=== PATIENT | male | born 1935 | race Caucasian/White ===

== ENCOUNTER 2017-06-29 16:02 | Observation (INO) ==
[2017-06-29] MEDS ORDERED: Nitroglycerin 0.4 MG TAB.SUBL SL PRN (16:24)
[2017-06-29] MEDS ORDERED: Nitroglycerin 1,000 MCG/10 ML VIAL IV STA (16:27)
[2017-06-29] MEDS ORDERED: Nitroglycerin 25 MG/250 ML INFUS..BTL IVC SCH (16:30)
--- NOTE | 2017-06-29 16:38 | Emergency Department Note ---
Disposition Clinical Impression: PRES (posterior reversible encephalopathy syndrome), Hypertensive emergency, Blurred vision, bilateral Disposition: Admitted As Inpatient Condition: Undetermined Referrals: Willard Elam MD [Primary Care Provider] - Forms: ED Satisfaction Letter Time of Disposition: 18:19 General Adult HPI - General Chief complaint: ED Eye Problems Stated complaint: Blurred Vision/LOPEZ Time Seen by Provider: 06/29/17 16:14 Source: patient Mode of arrival: ambulatory Limitations: no limitations Nursing Notes Reviewed: Yes Vital Signs Reviewed: Yes - History of Present Illness HPI Narrative: 81-year-old male with history of hypertension, hyperlipidemia arrives to the emergency department complaining of blurred vision and headache on the right side. The patient states this started roughly 24 hours ago. The patient states it is continued. The patient denies any numbness, tingling, chest pain, difficulty breathing. The patient describes lateral blurred vision. The patient states that is continued to get worse. He went to urgent care today for evaluation. They instructed him to come to the emergency department. The patient denies any black vision or decreased vision in one eye and states that his blurred vision bilaterally. The patient denies any other complaints at this time and denies any previous history of CVA. The patient does have history of hypertension is poorly controlled on multiple medications. His blood pressures currently 200 systolic. Heart rate is currently 57. The patient has been taking his medication as he is supposed to. He denies any other complaints at this time. Pain Scale: 3 - Related Data Home Medications Medication Instructions Recorded Confirmed Amlodipine Besylate/Benazepril 0.5 tab PO DAILY 12/13/14 04/29/17 [Lotrel 10-20 mg Capsule] Finasteride [Proscar] 5 mg PO DAILY 12/13/14 04/29/17 Metoprolol [Lopressor] 25 mg PO DAILY 12/13/14 04/29/17 Omeprazole [PriLOSEC] 20 mg PO DAILY 12/13/14 04/29/17 Sertraline [Zoloft] 100 mg PO DAILY 12/13/14 04/29/17 Allergies Allergy/AdvReac Type Severity Reaction Status Date / Time No Known Allergies Allergy Verified 06/29/17 15:21 All systems ED: reviewed and negative except as stated. Constitutional: Denies: fever, chills Eyes: Reports: eye pain, vision change ENT ED: Denies: ear pain, throat pain, dental pain Cardiovascular: Denies: chest pain Respiratory: Denies: dyspnea Gastrointestinal: Denies: abdominal pain Genitourinary: Denies: dysuria Musculoskeletal: Denies: back pain, neck pain Integumentary: Denies: rash Neurological: Reports: headache. Denies: weakness, numbness, paresthesias, confusion, abnormal gait, vertigo Past Medical History - Past Medical History Attestation: Yes The following information was validated with the patient. Source: patient, old records reviewed Medical history: Reports: cancer (Prostate), hyperlipidemia, hypertension, other Surgical history: Reports: non-contributory Psychiatric history: Reports: anxiety, depression - Social History Smoking Status: Never smoker Smokeless Tobacco Status: No Alcohol use: Reports: occasionally Drug use: Reports: none Physical Exam - General Limitations: no limitations General appearance: alert, in no apparent distress - Head Head exam: atraumatic, normocephalic, normal inspection - Eye Eye exam: Present: normal appearance, PERRL, EOMI. Absent: conjunctival injection, nystagmus, miosis, mydriasis, periorbital swelling, periorbital tenderness - ENT ENT exam: normal exam, normal oropharynx, mucous membranes moist - Neck Neck exam: Present: normal inspection, full ROM, trachea midline - Chest Chest inspection: Present: normal inspection, symmetric chest wall rise - Respiratory Respiratory exam: Present: normal lung sounds bilaterally - Cardiovascular Cardiovascular exam: Present: normal rhythm, bradycardia, normal heart sounds - Abdominal Exam Abdominal exam: Present: soft, Non-Tender. Absent: tenderness, distention, guarding, rebound, rigidity - Extremities Exam Extremities exam: Present: normal inspection, full ROM. 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 Choi in neurology who recommended we administer aspirin. He said otherwise at the patient will be seen by neurology. No further recommendations at this time. Time: 18:01 Vital Signs Temperature 97.9 F 06/29/17 16:06 Pulse Rate 57 06/29/17 16:06 Respiratory Rate 18 06/29/17 16:06 Blood Pressure 200/91 06/29/17 16:06 O2 Sat by Pulse Oximetry 97 06/29/17 16:06 Temperature 97.9 F 06/29/17 16:06 Pulse Rate 65 06/29/17 17:53 Respiratory Rate 18 06/29/17 17:53 Blood Pressure 147/70 06/29/17 17:53 O2 Sat by Pulse Oximetry 97 06/29/17 17:53 Oxygen Delivery Oxygen Delivery Room Air Medical Decision Making - MDM Narrative Medical decision making narrative: Workup in the emergency department demonstrates no acute process to labs and imaging. The patient's blood pressure was initially 200 systolic. The patient was placed in her carnitine drip and his blood pressure quickly responded. The patient states that his blurred vision is quickly improved. He has no further complaints at this time. He is resting comfortably in the room. The patient's last pressure was [address] Zhao. - Lab Data Lab results reviewed: Yes I reviewed the patient's lab results. Result diagrams: 06/29/17 16:21 06/29/17 16:21 Lab Results 06/29/17 06/29/17 06/29/17 Range/Units 16:21 16:21 16:21 WBC 8.3 (4.3-11.1) K/mcL RBC 4.72 (4.19-5.50) M/mcL Hgb 15.0 (12.9-16.9) g/dL Hct 43.6 (37.5-50.1) % MCV 92.4 (83.0-100.0) fL MCH 31.8 (28.0-33.3) pg MCHC 34.4 (31.6-35.5) g/dL RDW 12.8 (11.5-14.5) % Plt Count 154 (140-400) K/mcL MPV 10.2 (9.4-12.4) fL Immature Gran % 0.4 (0-4) % Seg Neutrophils % 68.0 % Lymphocytes % 22.7 % Monocytes % 6.8 % Eosinophils % 1.7 % Basophils % 0.4 % Neutrophils # 5.6 (1.6-8.9) K/mcL Lymphocytes # 1.9 (0.6-4.6) K/mcL Monocytes # 0.6 (0.0-1.3) K/mcL Eosinophils # 0.1 (0.0-0.6) K/mcL Basophils # 0.0 (0.0-0.2) K/mcL ESR (0-10) mm/hr PT 11.8 (9.4-12.1) Seconds INR 1.1 APTT 28.3 (26.0-36.0) Seconds Sodium 139 (136-145) mEq/L Potassium 4.3 (3.5-5.1) mEq/L Chloride 107 (98-107) mEq/L Carbon Dioxide 26 (23-29) mEq/L BUN 14 (8-23) mg/dL Creatinine 0.93 (0.70-1.30) mg/dL Est GFR ( Amer) > 60 (> 60) Est GFR (Non-Af Amer) > 60 (> 60) BUN/Creatinine Ratio 15 (6-26) Glucose 107 H (70-105) mg/dL Calculated Osmolality 289 (280-300) Calcium 9.2 (8.6-10.3) mg/dL Troponin I < 0.03 (< 0.04) ng/mL 06/29/17 Range/Units 16:21 WBC (4.3-11.1) K/mcL RBC (4.19-5.50) M/mcL Hgb (12.9-16.9) g/dL Hct (37.5-50.1) % MCV (83.0-100.0) fL MCH (28.0-33.3) pg MCHC (31.6-35.5) g/dL RDW (11.5-14.5) % Plt Count (140-400) K/mcL MPV (9.4-12.4) fL Immature Gran % (0-4) % Seg Neutrophils % % Lymphocytes % % Monocytes % % Eosinophils % % Basophils % % Neutrophils # (1.6-8.9) K/mcL Lymphocytes # (0.6-4.6) K/mcL Monocytes # (0.0-1.3) K/mcL Eosinophils # (0.0-0.6) K/mcL Basophils # (0.0-0.2) K/mcL ESR 15 H (0-10) mm/hr PT (9.4-12.1) Seconds INR APTT (26.0-36.0) Seconds Sodium (136-145) mEq/L Potassium (3.5-5.1) mEq/L Chloride (98-107) mEq/L Carbon Dioxide (23-29) mEq/L BUN (8-23) mg/dL Creatinine (0.70-1.30) mg/dL Est GFR ( Amer) (> 60) Est GFR (Non-Af Amer) (> 60) BUN/Creatinine Ratio (6-26) Glucose (70-105) mg/dL Calculated Osmolality (280-300) Calcium (8.6-10.3) mg/dL Troponin I (< 0.04) ng/mL - Radiology Data Radiology results reviewed: Yes I reviewed the patient's radiology results.
[2017-06-29] MEDS ORDERED: niCARdipine 40 MG/200 ML MLS IVC SCH (16:45)
--- NOTE | 2017-06-29 16:58 | Emergency Department Note ---
Disposition Clinical Impression: PRES (posterior reversible encephalopathy syndrome), Hypertensive emergency, Blurred vision, bilateral Disposition: Admitted As Inpatient Condition: Undetermined General Adult HPI - General Chief complaint: ED Eye Problems Stated complaint: Blurred Vision/LOPEZ Time Seen by Provider: 06/29/17 16:14 Source: patient Mode of arrival: ambulatory Limitations: no limitations Nursing Notes Reviewed: Yes Vital Signs Reviewed: Yes - History of Present Illness HPI Narrative: I, Tay Martinez, examined this patient and my medical decision-making was reviewed with the BRIDGE RIGGER/PA/Advanced Practice Nurse/Resident Physician. I agree with the documented findings, disposition and treatment plan as described except to the extent set forth below. 81-year-old male presents emergency Department with concerns of headache, blurred vision and elevated blood pressure. Patient states symptoms have been present over the past 24 hours. Patient states symptoms did not improve throughout the day and presented to the emergency department for further evaluation. Patient denies recent trauma or changes in medications. His initial evaluation had a blood pressure greater than 200 systolic, he is treated for hypertension however he did not miss any of his daily medications. No other changes in medications. Patient describes having a horizontal binocular diplopia. He does have a history of ataxia and feels like it may be worse than his baseline although he has not fallen is still able to ambulate. On physical examination the patient has tenderness to palpation of the right protestant. Extraocular range of motion is intact to examination. Peripheral vision is intact to examination bilaterally. Patient has mild ataxia with finger to nose testing however he states that that is his baseline. No other focal neurologic deficits noted on exam. We will administer nicardipine for possible hypertensive emergency to drop his blood pressure by a goal of 20%. Laboratory testing and imaging is pending at this time however patient will likely be admitted to the hospital for further care and evaluation. Pain Scale: 3 - Related Data Home Medications Medication Instructions Recorded Confirmed Amlodipine Besylate/Benazepril 0.5 tab PO DAILY 12/13/14 06/29/17 [Lotrel 10-20 mg Capsule] Finasteride [Proscar] 5 mg PO DAILY 12/13/14 06/29/17 Metoprolol [Lopressor] 25 mg PO DAILY 12/13/14 06/29/17 Omeprazole [PriLOSEC] 20 mg PO DAILY 12/13/14 06/29/17 Sertraline [Zoloft] 100 mg PO DAILY 12/13/14 06/29/17 Allergies Allergy/AdvReac Type Severity Reaction Status Date / Time No Known Allergies Allergy Verified 06/29/17 15:21 Constitutional: Denies: fever, chills Eyes: Reports: eye pain, vision change ENT ED: Denies: ear pain, throat pain, dental pain Cardiovascular: Denies: chest pain Respiratory: Denies: dyspnea Gastrointestinal: Denies: abdominal pain Genitourinary: Denies: dysuria Musculoskeletal: Denies: back pain, neck pain Integumentary: Denies: rash Neurological: Reports: headache. Denies: weakness, numbness, paresthesias, confusion, abnormal gait, vertigo Past Medical History - Past Medical History Medical history: Reports: cancer (Prostate), hyperlipidemia, hypertension, other Surgical history: Reports: non-contributory Psychiatric history: Reports: anxiety, depression - Social History Smoking Status: Never smoker Smokeless Tobacco Status: No Alcohol use: Reports: occasionally Drug use: Reports: none Physical Exam - General Limitations: no limitations General appearance: alert, in no apparent distress Course Vital Signs Temperature 97.9 F 06/29/17 16:06 Pulse Rate 57 06/29/17 16:06 Respiratory Rate 18 06/29/17 16:06 Blood Pressure 200/91 06/29/17 16:06 O2 Sat by Pulse Oximetry 97 06/29/17 16:06 Temperature 98.2 F 06/29/17 21:51 Pulse Rate 78 06/29/17 21:51 Respiratory Rate 20 06/29/17 21:51 Blood Pressure 179/79 06/29/17 21:51 O2 Sat by Pulse Oximetry 96 06/29/17 21:51 Oxygen Delivery Oxygen Delivery Room Air Medical Decision Making - Lab Data Result diagrams: 06/29/17 16:21 06/29/17 16:21 Lab Results 06/29/17 06/29/17 06/29/17 Range/Units 16:21 16:21 16:21 WBC 8.3 (4.3-11.1) K/mcL RBC 4.72 (4.19-5.50) M/mcL Hgb 15.0 (12.9-16.9) g/dL Hct 43.6 (37.5-50.1) % MCV 92.4 (83.0-100.0) fL MCH 31.8 (28.0-33.3) pg MCHC 34.4 (31.6-35.5) g/dL RDW 12.8 (11.5-14.5) % Plt Count 154 (140-400) K/mcL MPV 10.2 (9.4-12.4) fL Immature Gran % 0.4 (0-4) % Seg Neutrophils % 68.0 % Lymphocytes % 22.7 % Monocytes % 6.8 % Eosinophils % 1.7 % Basophils % 0.4 % Neutrophils # 5.6 (1.6-8.9) K/mcL Lymphocytes # 1.9 (0.6-4.6) K/mcL Monocytes # 0.6 (0.0-1.3) K/mcL Eosinophils # 0.1 (0.0-0.6) K/mcL Basophils # 0.0 (0.0-0.2) K/mcL ESR (0-10) mm/hr PT 11.8 (9.4-12.1) Seconds INR 1.1 APTT 28.3 (26.0-36.0) Seconds Sodium 139 (136-145) mEq/L Potassium 4.3 (3.5-5.1) mEq/L Chloride 107 (98-107) mEq/L Carbon Dioxide 26 (23-29) mEq/L BUN 14 (8-23) mg/dL Creatinine 0.93 (0.70-1.30) mg/dL Est GFR ( Amer) > 60 (> 60) Est GFR (Non-Af Amer) > 60 (> 60) BUN/Creatinine Ratio 15 (6-26) Glucose 107 H (70-105) mg/dL Calculated Osmolality 289 (280-300) Calcium 9.2 (8.6-10.3) mg/dL Troponin I < 0.03 (< 0.04) ng/mL 06/29/17 Range/Units 16:21 WBC (4.3-11.1) K/mcL RBC (4.19-5.50) M/mcL Hgb (12.9-16.9) g/dL Hct (37.5-50.1) % MCV (83.0-100.0) fL MCH (28.0-33.3) pg MCHC (31.6-35.5) g/dL RDW (11.5-14.5) % Plt Count (140-400) K/mcL MPV (9.4-12.4) fL Immature Gran % (0-4) % Seg Neutrophils % % Lymphocytes % % Monocytes % % Eosinophils % % Basophils % % Neutrophils # (1.6-8.9) K/mcL Lymphocytes # (0.6-4.6) K/mcL Monocytes # (0.0-1.3) K/mcL Eosinophils # (0.0-0.6) K/mcL Basophils # (0.0-0.2) K/mcL ESR 15 H (0-10) mm/hr PT (9.4-12.1) Seconds INR APTT (26.0-36.0) Seconds Sodium (136-145) mEq/L Potassium (3.5-5.1) mEq/L Chloride (98-107) mEq/L Carbon Dioxide (23-29) mEq/L BUN (8-23) mg/dL Creatinine (0.70-1.30) mg/dL Est GFR ( Amer) (> 60) Est GFR (Non-Af Amer) (> 60) BUN/Creatinine Ratio (6-26) Glucose (70-105) mg/dL Calculated Osmolality (280-300) Calcium (8.6-10.3) mg/dL Troponin I (< 0.04) ng/mL
[2017-06-29 17:12] LABS: Basophils % 0.4 %; Eosinophils # 0.1 K/mcL (0.0-0.6); Eosinophils % 1.7 %; Hematocrit 43.6 % (37.5-50.1); Immature Granulocytes % 0.4 % (0-4); Lymphocytes # 1.9 K/mcL (0.6-4.6); Lymphocytes % 22.7 %; Mean Corpuscular HGB Conc 34.4 g/dL (31.6-35.5); Mean Corpuscular Hemoglobin 31.8 pg (28.0-33.3); Mean Corpuscular Volume 92.4 fL (83.0-100.0); Mean Platelet Volume 10.2 fL (9.4-12.4); Monocytes # 0.6 K/mcL (0.0-1.3); Monocytes % 6.8 %; Neutrophils # 5.6 K/mcL (1.6-8.9); Platelet Count 154 K/mcL (140-400); Red Blood Count 4.72 M/mcL (4.19-5.50); Red Cell Distribution Width 12.8 % (11.5-14.5)
[2017-06-29 17:17] LABS: INR 1.1; Prothrombin Time 11.8 Seconds (9.4-12.1)
[2017-06-29 17:20] LABS: Activated Partial Thrombo Time 28.3 Seconds (26.0-36.0)
[2017-06-29 17:36] LABS: BUN/Creatinine Ratio 15 (6-26); Blood Urea Nitrogen 14 mg/dL (8-23); Calcium 9.2 mg/dL (8.6-10.3); Carbon Dioxide 26 mEq/L (23-29); Chloride 107 mEq/L (98-107); Glucose 107 mg/dL (70-105); Osmolality,Calculated 289 (280-300); Potassium 4.3 mEq/L (3.5-5.1); Sodium 139 mEq/L (136-145); eGFR For African Americans > 60 (> 60); eGFR For Non-African Americans > 60 (> 60)
[2017-06-29 17:37] LABS: Troponin I < 0.03 ng/mL (< 0.04)
[2017-06-29] MEDS ORDERED: Aspirin 325 MG TABLET PO ONE (17:59)
--- NOTE | 2017-06-29 20:19 | Internal Med History&Physical ---
<Marielos Moulton H - Last Filed: 06/29/17 22:23> Date of Encounter: 06/29/17 Time of Encounter: 20:18 Internal Medicine - H&P: HPI Chief complaint: weakness, diplopia Admitted From: Emergency Dept Plans for Post Hospital Care: Home History of present illness: Mr. Ragland is a 81 year old male with past medical history of HTN, BPH, HLD, and anxiety who presented to [facility] 06/29/2017 with chief complaint of diplopia, weakness, and blurry vision. Per patient, he described his symptoms as starting early Friday afternoon. He initially presented to the urgent care with a BP reading greater than 200 systolic. He was subsequently transferred to the ED for hypertensive emergency. In the ED, his blood pressure was found to be 200/91. Patient states he has been taking his medications compliantly. He denies any recent diplopia. He denies any recent life stressors or situations causing extra anxiety. He states his PCP is Dr. Willard Elam. Patient denies any history of coronary artery disease or cardiac interventions. He denies history of CVA. When describing his visual disturbances, he reports seeing double, as well as seeing blurry in both lateral ott. Upon examination, patient is resting comfortably. He does report a chronic tremor and some difficulties with ambulation from suspected Parkinson's. He denies any chest pain, shortness of breath, diaphoresis, nausea, or vomiting. He denies any diarrhea, constipation, melena, hematochezia, or hematemesis. He denies any fevers, chills, or night sweats. He states his headache has improved , however, he states his blurred vision has barely improved. Past Med Surg Social Fam HX - Past Medical History Attestation: Yes The following information was validated with the patient. Source: patient, old records reviewed Medical history: cancer (Prostate), hyperlipidemia, hypertension, other Psychiatric history: anxiety, depression - Past Surgical History Surgical History: non-contributory - Social History Smoking Status: Former smoker Smokeless Tobacco Status: No Alcohol use: occasionally Drug use: none - Family History Father Living Status: Hx Family Cardiac Disorders: No Hx Family Respiratory Disorders: No Hx Family Cancer: No Hx Family GI Disorders: No Hx Family Endocrine Disorder: No Hx Family Neuromuscular Disorders: No Hx Family Neurologic Disorders: No Hx Family HEENT Disorders: No Hx Family Autoimmune Disorders: No Internal Medicine - H&P: Meds Amlodipine Besylate/Benazepril [Lotrel 10-20 mg Capsule] 0.5 tab PO DAILY [History] Finasteride [Proscar] 5 mg PO DAILY 12/13/14 [History] Metoprolol [Lopressor] 25 mg PO DAILY 12/13/14 [History] Omeprazole [PriLOSEC] 20 mg PO DAILY 12/13/14 [History] Sertraline [Zoloft] 100 mg PO DAILY 12/13/14 [History] 3 Allergy/AdvReac Type Severity Reaction Status Date / Time No Known Allergies Allergy Verified 06/29/17 15:21 All Systems PM: A 10-system review of systems was performed and is negative for pertinent findings except as documented above in the HPI. - Constitutional Constitutional: no chills, no falls, no lethargy, no night sweats, no weight gain, no weight loss - EENT Eyes: blurry vision, diplopia, no loss of peripheral vision, no photophobia, no spots in vision Nose, mouth and throat: no facial pain - Cardiovascular Cardiovascular ROS IM: no chest pain, no claudication, no diaphoresis, no dyspnea, no dyspnea on exertion, no edema, no irregular heart rhythm, no lightheadedness, no orthopnea, no palpitations, no paroxysmal nocturnal dyspnea - Respiratory Respiratory: no cough, no dyspnea, no hemoptysis, no chest congestion - Gastrointestinal Gastrointestinal: no abdominal pain, no coffee ground emesis, no constipation, no cramping, no diarrhea, no hematemesis, no hematochezia, no melena, no nausea , no vomiting - Genitourinary Genitourinary ROS male: urinary frequency, no dysuria, no hematuria - Integumentary Integumentary IM: no erythema, no rash, no jaundice - Neurological Neurological ROS: abnormal gait, headache(s), weakness, other visual disturbances (diplopia), no abnormal hearing, no abnormal speech, no behavioral changes, no burning sensations, no confusion, no convulsions, no disequilibrium , no dizziness, no focal weakness, no frequent falls, no numbness - Psychiatric Psychiatric: anhedonia, no abnormal sleep pattern, no confusion - Endocrine Endocrine IM: no cold intolerance, no heat intolerance - Allergic/Immunologic Allergic/Immunologic: no tongue swelling, no throat swelling - Constitutional Vitals: Temp Pulse Resp BP Pulse Ox 97.9 F 72 16 174/81 96 06/29/17 16:06 06/29/17 20:16 06/29/17 20:16 06/29/17 20:16 06/29/17 20:16 General appearance: Present: A&O X 3, pleasant, no acute distress, answers questions appropriately - Head Head exam: Present: atraumatic, normocephalic - Eye Eye exam: Present: EOMI, PERRL, conjuntiva pink, sclera anicteric. Absent: nystagmus, periorbital swelling, periorbital tenderness, scleral icterus Pupils: Present: normal accommodation, PERRL - ENT ENT exam: Present: mucous membranes moist, normal oropharynx - Neck Neck exam general surgery: Present: supple, trachea midline. Absent: lymphadenopathy - Respiratory Respiratory exam: Present: CTAB. Absent: accessory muscle use, rales, rhonchi, wheezes - Cardiovascular Cardiovascular exam: Present: RRR, +S1, +S2. Absent: diastolic murmur, gallop, rubs, systolic murmur - GI/Abdominal GI/Abdominal exam: Present: normal bowel sounds, soft, no peritoneal signs. Absent: distended, firm, guarding, tenderness - Extremities Exam Extremities exam: Present: normal capillary refill, warm, radial pulses palpable and symmetrical. Absent: calf tenderness, cyanotic, pedal edema - Neurological Exam Neurological exam: Present: alert, CN II-XII intact, oriented X3, no focal deficits, strengths equal and symetr throughout. Absent: pronater drift, facial droop, speech deficit - Expanded Neurological Exam Neurological exam expanded: Present: ataxia, protecting the airway, tremor. Absent: expressive aphasia, receptive aphasia Cranial Nerves: EOM's intact PM: Normal, gag reflex PM: Normal, nystagmus PM: Normal, tongue deviation PM: Normal Cerebellar function: finger to nose: Normal Upper motor neuron: Babinski sign: Normal Sensory exam: LE 2 point discrimination: Normal, lower extremity light touch: Normal, lower extremity pin prick: Normal, UE 2 point discrimination: Normal, upper extremity light touch: Normal, upper extremity pin prick: Normal Neuro motor strength exam: LUE: 5, RUE: 5, LLE: 5, RLE: 5 DTR: bicep (L): 2+, bicep (R): 2+, patellar (L): 2+, patellar (R): 2+ - Psychiatric Psychiatric exam: Present: normal affect, normal mood - Skin Skin exam: Present: dry, intact, warm Internal Med - H&P Results - Labs CBC & Chem 7: 06/29/17 16:21 06/29/17 16:21 Labs: Short CBC 06/29/17 Range/Units 16:21 WBC 8.3 (4.3-11.1) K/mcL Hgb 15.0 (12.9-16.9) g/dL Hct 43.6 (37.5-50.1) % Plt Count 154 (140-400) K/mcL Neutrophils # 5.6 (1.6-8.9) K/mcL BMP 06/29/17 16:21 Sodium 139 Potassium 4.3 Chloride 107 Carbon Dioxide 26 BUN 14 Creatinine 0.93 Glucose 107 H Calcium 9.2 Cardiac Enzymes 06/29/17 Range/Units 16:21 Troponin I < 0.03 (< 0.04) ng/mL - Impressions ITS Impressions Head CT 06/29/17 16:25 IMPRESSION: No acute intracranial abnormality. D/ / Maxime Pena / Maxime Pena Interpreting Provider: Maxime Pena - Assessment and plan (1) Hypertensive emergency Current Visit: Yes Status: Acute Assessment and plan: 81-year-old male with past medical history HTN presents with hypertensive emergency with generalized neurological symptoms. -Continue cardizem drip with titration parameters to keep blood pressure below 170/80. -Resume home metoprolol at home dose tonight- to be started tonight. -Resume home amlodipine at twice the home dose and Benzapril at the same dose- to be given in the AM. -CT scan the head shows no acute abnormality. Will proceed with an MRI of the head. (2) Double vision Current Visit: No Status: Acute Assessment and plan: Patient with double vision that he denies prior to onset of his symptoms 24 hours ago. -Neurology consulted from the ED. They will see him in the morning. -Unclear etiology. Symptoms started greater than 24 hours previous so patient would be outside of the window for tPA regardless. -MRI head. (3) Headache Current Visit: No Status: Acute Assessment and plan: Patient states his right-sided headache is improving with control of his blood pressure. -Continue to monitor. -Appreciate neurology recommendations. Qualifiers: Headache type: unspecified Headache chronicity pattern: acute headache Intractability: not intractable Qualified Code(s): R51 - Headache (4) DVT prophylaxis Current Visit: Yes Status: Acute Assessment and plan: Heparin 5000 units subcutaneous twice a day. - Time Spent With Patient Total time spent is greater than 50% in coordination of care (as documented) at patient's floor/unit and/or counseling patient: <Mele Hong - Last Filed: 06/30/17 06:22> Date of Encounter: 06/30/17 Internal Medicine - H&P: HPI History of present illness: Mr. Ragland is a 81 year old male All Systems PM: A 10-system review of systems was performed and is negative for pertinent findings except as documented above in the HPI. - Constitutional Vitals: Temp Pulse Resp BP Pulse Ox 97.7 F 60 18 153/84 94 06/30/17 04:00 06/30/17 04:00 06/30/17 04:00 06/30/17 04:00 06/30/17 04:00 Internal Med - H&P Results - Labs CBC & Chem 7: 06/30/17 05:19 06/29/17 16:21 Labs: Short CBC 06/30/17 Range/Units 05:19 WBC 9.1 (4.3-11.1) K/mcL Hgb 14.6 (12.9-16.9) g/dL Hct 43.1 (37.5-50.1) % Plt Count 147 (140-400) K/mcL Neutrophils # 6.0 (1.6-8.9) K/mcL - Attending Attestation I have seen and examined this patient independently. I have discussed with resident physician Dr Walters regarding the management plan. Agree with the documentation. - Assessment and plan (1) Headache Current Visit: No Status: Inactive Qualifiers: Headache type: unspecified Headache chronicity pattern: acute headache Intractability: not intractable Qualified Code(s): R51 - Headache (2) Double vision Current Visit: No Status: Inactive (3) Hypertensive emergency Current Visit: Yes Status: Acute (4) DVT prophylaxis Current Visit: Yes Status: Acute - Time Spent With Patient Total time spent is greater than 50% in coordination of care (as documented) at patient's floor/unit and/or counseling patient:
[2017-06-29] MEDS ORDERED: Acetaminophen 325 MG TABLET PO PRN (22:14)
[2017-06-29] MEDS ORDERED: Naloxone 0.4 MG/ML INJ IVP PRN (22:14)
[2017-06-29] MEDS: Metoprolol XL (24 HR) Succ 25 MG TAB.ER.24H PO SCH (23:57)
[2017-06-30] MEDS: niCARdipine 40 MG/200 ML MLS IVC SCH ×3 (00:54→15:08)
[2017-06-30 06:09] LABS: Basophils % 0.4 %; Eosinophils # 0.2 K/mcL (0.0-0.6); Eosinophils % 1.7 %; Hematocrit 43.1 % (37.5-50.1); Hemoglobin 14.6 g/dL (12.9-16.9); Immature Granulocytes % 0.3 % (0-4); Lymphocytes # 2.2 K/mcL (0.6-4.6); Lymphocytes % 24.1 %; Mean Corpuscular HGB Conc 33.9 g/dL (31.6-35.5); Mean Corpuscular Hemoglobin 31.1 pg (28.0-33.3); Mean Corpuscular Volume 91.9 fL (83.0-100.0); Monocytes # 0.6 K/mcL (0.0-1.3); Platelet Count 147 K/mcL (140-400); Red Blood Count 4.69 M/mcL (4.19-5.50); Red Cell Distribution Width 12.8 % (11.5-14.5); Segmented Neutrophils % 66.5 %
[2017-06-30 06:35] LABS: Alanine Aminotransferase 16 Units/L (7-52); Albumin 4.2 g/dL (3.5-5.7); Albumin/Globulin Ratio 1.7 (1.1-2.2); Alkaline Phosphatase 65 Units/L (34-104); Aspartate Amino Transferase 15 Units/L (13-39); BUN/Creatinine Ratio 15 (6-26); Bilirubin,Total 0.9 mg/dL (0.3-1.0); Blood Urea Nitrogen 13 mg/dL (8-23); Calcium 9.5 mg/dL (8.6-10.3); Carbon Dioxide 27 mEq/L (23-29); Chloride 106 mEq/L (98-107); Chol/HDL Ratio 3.9 (0-4.9); Cholesterol 171 mg/dL (< 200); Globulin 2.5 g/dL (2.4-3.5); Glucose 113 mg/dL (70-105); HDL Cholesterol 44 mg/dL (40-59); LDL Cholesterol,Calculated 100 mg/dL (0-99); Magnesium 1.7 mg/dL (1.6-2.6); Osmolality,Calculated 289 (280-300); Phosphorous 3.1 mg/dL (2.7-4.5); Potassium 4.2 mEq/L (3.5-5.1); Sodium 139 mEq/L (136-145); Total Protein 6.7 g/dL (6.4-8.9); Triglycerides 136 mg/dL (< 150); eGFR For African Americans > 60 (> 60); eGFR For Non-African Americans > 60 (> 60)
[2017-06-30] MEDS: *HR* Heparin 5,000 UNIT/ML VIAL SQ SCH ×2 (06:54→16:44)
[2017-06-30] MEDS: Finasteride 5 MG TABLET PO SCH (07:52)
[2017-06-30] MEDS: Metoprolol XL (24 HR) Succ 25 MG TAB.ER.24H PO SCH (07:52)
[2017-06-30] MEDS: amLODIPine 5 MG TABLET PO SCH (07:52)
--- NOTE | 2017-06-30 08:24 | Internal Med Progress Note ---
<Mikey Morales - Last Filed: 06/30/17 13:20> Date of Encounter: 06/30/17 Time of Encounter: 08:23 - Assessment and plan (1) Hypertensive emergency Current Visit: Yes Status: Acute Assessment and plan: Associated with blurred vision, diplopia, and right-sided headache and frontotemporal region. Blood pressure elevations show suboptimal control. Has oculomotor nerve deficits on exam. Head CT was negative for any signs of ischemic stroke or intracranial hemorrhage. Neurology has been consulted on case and recommendations appreciated. No other acute neurologic deficits elucidated on exam. Nicardipine drip is currently off. -- Possible CVA -- will defer more vigilant blood pressure control for time being due to concern of acute cerebral ischemia; may consider upward titration of lisinopril if needed. -- reinstate nicardipine drip for any systolic blood pressures over 195 -- continue metoprolol at 25 mg XL daily, amlodipine 10 mg daily; will opt not to increase metoprolol this patient is borderline bradycardic -- awaiting MRI of head (2) Headache Current Visit: No Status: Inactive Assessment and plan: Overall pain is more well-controlled, however headache does persist. Patient has had tenuous control of his elevated blood pressures. All plans as above. Qualifiers: Headache type: unspecified Headache chronicity pattern: acute headache Intractability: not intractable Qualified Code(s): R51 - Headache (3) Double vision Current Visit: No Status: Inactive Assessment and plan: Continues to have oculomotor nerve palsy evident on upward gaze and medial gaze. Neurology onboard and head MRI is pending. All plans as above (4) DVT prophylaxis Current Visit: Yes Status: Acute Assessment and plan: Heparin 5000 units subcutaneous twice a day. - Time Spent With Patient Total time spent is greater than 50% in coordination of care (as documented) at patient's floor/unit and/or counseling patient: - Subjective Interval history: Patient continues to have loose control his blood pressure with a peak systolic 180 this morning. Patient has received his metoprolol XL 25 mg and amlodipine 10 mg at 0800. Last measure BP at that time had been just prior. Patient has been weaned off as nicardipine drip. Lisinopril due at 0900. Patient continues to have mild headache that localizes to the right side as well as continued "double vision"; double vision is worse when rapidly looking straight ahead or when looking up. No other newer acute complaints. Recent history -- denies any lateralizing weakness, numbness, tingling, blackened visual ott, difficulty speaking/swallowing, chest pain, palpitations, shortness of air, nausea, vomiting, abdominal pain, pedal edema, or any recent fever/chills/sweats. Neurology onboard and awaiting MRI. - Constitutional Vitals: Temp Pulse Resp BP Pulse Ox 97.7 F 68 18 180/86 95 06/30/17 07:46 06/30/17 07:59 06/30/17 07:46 06/30/17 07:46 06/30/17 07:46 General appearance: Present: A&O X 3, pleasant, no acute distress, answers questions appropriately Exam: CONSTITUTIONAL: Alert and oriented X3, well-nourished, well appearing, in no apparent distress HEAD: Normocephalic; atraumatic. EYES: PERRL (2-3mm), no scleral icterus, no drainage, no conjunctival injection. Corneal reflex normal and lateral penlight test normal. Oropharynx: pink/moist, no tonsillar edema/erythema/exudates RESP: NRD without use of accessory musculature, CTA b/l with no wheezes/rales/ rhonchi CARD: Regular rhythm, without murmurs, rubs, or gallop ABD: grossly normal, soft, non-tender, no guarding/distention/rigidity SKIN: normal appearance, no pallor/diaphoresis,mottling,jaundice,cyanosis EXT: Rad pulses 2+ and symmetrical; no lateralizing edema; no other lesions seen NEUR: right extraocular motion hindered in the superior and medial planes; other cranial nerve exam within normal limits. No lateralizing motor deficits. Does have baseline intention tremor in b/l hands. No resting tremor. No ataxia in UE/LE. Reflexes 2+ to bilateral brachial and bilateral patellar tendons. Negative Babinski. PSYCH: appropriate mood/affect Internal Medicine: Result - Labs CBC & Chem 7: 06/30/17 05:19 06/30/17 05:19 - ABG Interpretation ABG results: PT/INR, D-dimer PT 11.8 Seconds (9.4-12.1) 06/29/17 16:21 Consult Discharge Plan - Plan Referrals: Willard Elam MD [Primary Care Provider] - (OFFICE WILL NOT MAKE A FOLLOW UP APPOINTMENT THEY WANT THE PATIENT TO CALL AND MAKE THEIR OWN) <Dereje Weldon - Last Filed: 06/30/17 17:58> Date of Encounter: 06/30/17 - Assessment and plan (1) Hypertensive emergency Current Visit: Yes Status: Acute (2) Cranial nerve III palsy Current Visit: Yes Status: Acute Qualifiers: Laterality: right Qualified Code(s): 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, right eye (3) Double vision Current Visit: No Status: Inactive (4) Headache Current Visit: No Status: Inactive Qualifiers: Headache type: unspecified Headache chronicity pattern: acute headache Intractability: not intractable Qualified Code(s): R51 - Headache (5) DVT prophylaxis Current Visit: Yes Status: Acute - Time Spent With Patient Total time spent is greater than 50% in coordination of care (as documented) at patient's floor/unit and/or counseling patient: - Constitutional Vitals: Temp Pulse Resp BP Pulse Ox 98.2 F 65 16 158/90 96 06/30/17 16:20 06/30/17 16:20 06/30/17 16:20 06/30/17 16:20 06/30/17 16:20 Internal Medicine: Result - Labs CBC & Chem 7: 06/30/17 05:19 06/30/17 05:19 - ABG Interpretation ABG results: PT/INR, D-dimer PT 11.8 Seconds (9.4-12.1) 06/29/17 16:21 - Impressions Impressions Echocardiogram 06/30/17 11:53 Impressions: LVEF 60-65%. Normal LV chamber size and function. Mild concentric left ventricular hypertrophy. Mild left ventricular diastolic dysfunction. Normal right ventricular structure and function. No evidence of PFO with agitated saline contrast. Mild aortic regurgitation. Mild tricuspid regurgitation. Mild pulmonary hypertension. Estimated RVSP is 41 mmHg. Left Ventricular Wall Motion: Rest Echo Findings All wall segments showed normal motion. Findings: Study Quality * Technically adequate exam. ECG Findings * Normal sinus rhythm. Left Ventricle * LVEF 60-65%. * Normal LV chamber size and function. * Mild concentric left ventricular hypertrophy. * Mild left ventricular diastolic dysfunction. Right Ventricle * Normal right ventricular structure and function. Left Atrium * Mildly dilated left atrium. Right Atrium * Mildly dilated right atrium. Interatrial Septum * No evidence of PFO with agitated saline contrast. Aortic Valve * Trileaflet aortic valve. * Mildly sclerotic aortic valve leaflets. * Mild aortic regurgitation. * No aortic stenosis. Mitral Valve * Normal mitral valve structure and function. * No mitral stenosis. * Trace mitral regurgitation. Tricuspid Valve * Normal tricuspid valve structure. * Mild tricuspid regurgitation. * Mild pulmonary hypertension. * Estimated RVSP is 41 mmHg. * Estimated RA pressure is 5 mmHg. Pulmonic Valve * Normal pulmonic valve structure and function. * No pulmonic regurgitation. Aorta * Normally sized aortic root. Pericardium * The pericardium appears normal. IVC * The IVC is not well evaluated. Pulmonary Artery * Normal visualized portions of the main pulmonary artery. - Attending Attestation I examined this patient and my medical decision-making was reviewed with the Resident Physician on 06/30/17. I agree with the documented findings, disposition and treatment plan as described except to the extent set forth below. Mr Ragland has been admitted for acute hypertensive emergency and visual changes. He remains moderate to high risk due to potential for worsening neuro and clinical status. Mr Ragland is resting comfortably. Still has some headache. Visual changes still present. No fever or chills. Appreciate neuro input. Exam alert Comfortable Mucus membranes dry Heart distant and regular No wheeze Abd soft I/P 1. HTN emergency 2. Gaze palsy Further diagnoses and plan as above.
--- NOTE | 2017-06-30 09:54 | Neurology - Consult Note ---
<Shahid Garcia - Last Filed: 06/30/17 11:34> Date of Encounter: 06/30/17 Time of Encounter: 11:34 Assessment and Plan (1) CVA (cerebral vascular accident) Current Visit: Yes Status: Suspected Patient presented with acute onset of blurry vision which then progresses to double vision Neuro exam non-focal and non-lateralizing except for right cranial nerve three palsy: absent adduction of right eye, right eyelid drooping. Ct scan negative, Plan: awaiting MRI, Aspirin, statin. Order carotid doppler, echocardiogram. Qualifiers: CVA mechanism: unspecified Qualified Code(s): I63.9 - Cerebral infarction, unspecified (2) Cranial nerve III palsy Current Visit: Yes Status: Acute plan as above. Qualifiers: Laterality: right Qualified Code(s): 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, right eye (3) Diplopia Current Visit: Yes Status: Acute 2nd to cranial nerve three palsy (4) Hypertensive emergency Current Visit: Yes Status: Acute presented with BP 200/91 hx of htn on amlodipine, metoprolol, at home was started on nicardipine gtt in ER which improved his BP to systolic 150s with reoported improvement in blurry vision recommend continuing home medication with BP goal below systolic 180 History of Present Illness Chief complaint: double vision, blurry vision HPI: Mr. Ragland is a 81 year old male presented with chief complaint of blurry vision/double vision. Patient states symptoms started Friday while he was fertilizing his lawn. Initially he had blurry vision but this progressed into double vision the next day. Patient double vision becomes worse when looking up. He denies changes in hearing, tinnitus, difficulty swallowing, facial drooping, slurred speech, numbness, tingling, difficulty walking, syncope. Patient denies history of seizures, head trauma, CVA. In the emergency room patient's blood pressure was elevated with systolic being in the 200s. He also reported headache which has not resolved. He reports taking his blood pressure medications as prescribed. In the emergency department he was started on nicardipine drip. Patient's blurred vision improved with decrease in his blood pressure. CT head was negative. This morning patient continues to have blurred vision and double vision. He reports no acute overnight events. Past Med Surg Social Fam HX - Past Medical History Medical history: cancer (Prostate), hyperlipidemia, hypertension, other Psychiatric history: anxiety, depression - Past Surgical History Surgical History: non-contributory - Social History Smoking Status: Never smoker Packs per day: 1 Smokeless Tobacco Status: No Alcohol use: occasionally Drug use: none - Family History Father Name: RAISSA Living Status: Age at : 45 Cause of : PNEUMONIA Hx Family Cardiac Disorders: No Hx Family Respiratory Disorders: No Hx Family Cancer: No Hx Family GI Disorders: No Hx Family Endocrine Disorder: No Hx Family Neuromuscular Disorders: No Hx Family Neurologic Disorders: No Hx Family HEENT Disorders: No Hx Family Autoimmune Disorders: No Medications and Allergies Finasteride [Proscar] 5 mg PO DAILY 12/13/14 [History] Omeprazole [PriLOSEC] 20 mg PO DAILY 12/13/14 [History] Sertraline [Zoloft] 100 mg PO DAILY 12/13/14 [History] Aspirin [Lo-Dose Aspirin EC] 81 mg PO DAILY 06/30/17 [History] Atorvastatin [Lipitor] 10 mg PO HS 06/30/17 [History] Metoprolol Succinate [Toprol Xl] 25 mg PO DAILY 06/30/17 [History] amLODIPine [Norvasc] 5 mg PO DAILY 06/30/17 [History] 3 Allergy/AdvReac Type Severity Reaction Status Date / Time No Known Allergies Allergy Verified 06/29/17 15:21 All Systems: The remainder of the systems were reviewed and are negative Review of Systems: Constitutional: Denies fever, chills HEENT: Reports headache, vision changes. denies neck pain, sore throat, rhinorrhea Heart: Denies chest pain palpitations Lungs: Denies shortness of breath cough Abdomen: Denies abdominal pain nausea vomiting diarrhea Back: Denies back pain Kidney: Denies dysuria, hematuria Skin: warm and dry Extremities: Denies swelling, pain Neuro: As per history of present illness Physical Examination - Vital Signs Vital Signs: Initial Vital Signs Temp Pulse Resp BP Pulse Ox 97.9 F 57 18 200/91 97 06/29/17 16:06 06/29/17 16:06 06/29/17 16:06 06/29/17 16:06 06/29/17 16:06 - Exam Exam: General: without distress HEENT: Head atraumatic, normocephalic, neck nontender to palpation, absent lymphadenopathy, Moist Mucous Membranes, Heart: Regular rate and rhythm with no murmur Lungs: Clear to auscultation bilaterally Abdomen: Soft nontender, nondistended positive bowel sounds Skin: warm and dry Extremities: Absent pedal edema, Vascular: Pedal and radial pulses 2 out of 4 - Constitutional General appearance: comfortable - Neurologic Sensorimotor examination: intact Detailed motor examination: full strength in all major muscle groups Motor examination - right side: 5/5: deltoids, biceps, triceps, wrist flexion, wrist extension, tread builder, hip flexors, tibialis Anterior, quadriceps, toe extension (EHL), plantarflexion Motor examination - left side: 5/5: deltoids, biceps, triceps, wrist flexion, wrist extension, hip flexors, tread builder, quadriceps, tibialis Anterior, toe extension (EHL), plantarflexion Detailed sensory examination: intact Reflex and gait examination: intact Reflexes: Biceps: 2+, Triceps: 2+, Brachioradialis: 2+, Patella: 1+ (1+ on the left and 2+ on the right), Achilles: 2+ Mental Status Examination: awake, alert, oriented to person, oriented to place, oriented to time, follows commands appropriately, answers questions appropriately, no aphasia, no aproxia, opens eyes to voice, makes eye contact Cranial nerve examination: visual ott intact, sensory to face intact, mastication intact, no facial asymmetry is present, no dysarthria, hearing is intact symmetrically, soft palate elevates bilaterally upon phonation, flexes SCM and trapezius muscles symmetrically with full power, tongue protrudes midline, no atrophy or facial fasiculations present Cranial Nerve Exam: CN III palsy: Right Cerebellar examination: performs finger to nose and heel to shields symmetrically without ataxia (difficulty with finger to nose due to double vision which resolves when just using one eye ), no gait ataxia, no difficulty with rapid alternating movements Ocular dysmotility: ocular dysmetria Results - Laboratory Findings CBC and BMP: 06/30/17 05:19 06/30/17 05:19 Abnormal lab findings: Abnormal lab results ESR 15 mm/hr (0-10) H 06/29/17 16:21 Glucose 113 mg/dL (70-105) H 06/30/17 05:19 POC Glucose 100 mg/dL (70-99) H 06/30/17 07:02 LDL Cholesterol, Calc 100 mg/dL (0-99) H 06/30/17 05:19 Consult Discharge Plan - Plan Referrals: Willard Elam MD [Primary Care Provider] - (OFFICE WILL NOT MAKE A FOLLOW UP APPOINTMENT THEY WANT THE PATIENT TO CALL AND MAKE THEIR OWN) <Michelle Choi I - Last Filed: 06/30/17 17:22> Date of Encounter: 06/30/17 Assessment and Plan (1) Diplopia Current Visit: Yes Status: Acute Pt was seen and examined, my medical decision was reviewed with the Resident Physician, I agree with the documented findings, disposition and treatment plas as described except to the extent set forth below Patient was seems to be having predominantly visual symptoms of double vision but without any other focal findings on neurological examination though he did have a multiple risk factors for the stroke but at the moment I did not see any other focal lateralizing sign of the stroke. I suggest that we should continue to the stroke workup including continuing moment antiplatelet therapy . Probably would benefit from ophthalmology consultation could be done later on as an outpatient At the moment does not seem like he has any infarct but this remains a possibility monitor his blood pressure and control the blood sugar as well Michelle Choi MD History of Present Illness HPI: Mr. Ragland is a 81 year old male All Systems: The remainder of the systems were reviewed and are negative Physical Examination - Vital Signs Vital Signs: Initial Vital Signs Temp Pulse Resp BP Pulse Ox 97.9 F 57 18 200/91 97 06/29/17 16:06 06/29/17 16:06 06/29/17 16:06 06/29/17 16:06 06/29/17 16:06 Results - Laboratory Findings CBC and BMP: 06/30/17 05:19 06/30/17 05:19 Abnormal lab findings: Abnormal lab results ESR 15 mm/hr (0-10) H 06/29/17 16:21 Glucose 113 mg/dL (70-105) H 06/30/17 05:19 POC Glucose 115 mg/dL (70-99) H 06/30/17 16:23 LDL Cholesterol, Calc 100 mg/dL (0-99) H 06/30/17 05:19
[2017-06-30] MEDS: Aspirin 81 MG TAB.CHEW PO SCH (16:44)
[2017-07-01] MEDS: *HR* Heparin 5,000 UNIT/ML VIAL SQ SCH (04:29)
[2017-07-01 05:55] LABS: BUN/Creatinine Ratio 15 (6-26); Blood Urea Nitrogen 14 mg/dL (8-23); Calcium 9.4 mg/dL (8.6-10.3); Carbon Dioxide 27 mEq/L (23-29); Chloride 103 mEq/L (98-107); Glucose 103 mg/dL (70-105); Osmolality,Calculated 287 (280-300); Potassium 4.3 mEq/L (3.5-5.1); Sodium 138 mEq/L (136-145); eGFR For African Americans > 60 (> 60); eGFR For Non-African Americans > 60 (> 60)
[2017-07-01] MEDS: niCARdipine 40 MG/200 ML MLS IVC SCH ×2 (07:26→07:27)
[2017-07-01] MEDS: Metoprolol XL (24 HR) Succ 25 MG TAB.ER.24H PO SCH (07:38)
[2017-07-01] MEDS: Aspirin 81 MG TAB.CHEW PO SCH (07:39)
[2017-07-01] MEDS: amLODIPine 5 MG TABLET PO SCH (07:39)
[2017-07-01] MEDS: Finasteride 5 MG TABLET PO SCH (07:39)
[2017-07-01 07:58] VITALS: BP 163/81
--- NOTE | 2017-07-01 09:51 | Discharge Summary ---
- NOTES TO OUTPATIENT PROVIDER Notes to Outpatient Provider: Monitor BP Date of Encounter: 07/01/17 Time of Encounter: 09:49 - Discharge Diagnosis (1) Hypertensive emergency Priority: Primary Status: Acute (2) Headache Priority: Primary Status: Resolved Qualifiers: Headache type: unspecified Headache chronicity pattern: acute headache Intractability: not intractable Qualified Code(s): R51 - Headache (3) Double vision Priority: Primary Status: Acute (4) Cranial nerve III palsy Priority: Primary Status: Acute Qualifiers: Laterality: right Qualified Code(s): 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, right eye (5) BPH (benign prostatic hyperplasia) Priority: Secondary Status: Chronic Qualifiers: Lower urinary tract symptom presence: unspecified whether lower urinary tract symptoms present Qualified Code(s): N40.0 - Benign prostatic hyperplasia without lower urinary tract symptoms (6) Anxiety Priority: Secondary Status: Chronic Hospital course: Mr. Ragland is a 81 year old male with the above medical problems who was admitted with blurred vision, noted to have hypertensive emergency with systolic blood pressure greater than 180 at admission. He was initially started on IV Cardizem drip for blood pressure control along with resumption of home medications. CT head and MRI brain showed no evidence of acute stroke. Neurology was consulted, patient was noted to have right oculomotor nerve patency with absence of adduction and ptosis on the right side. Stroke workup was completed with carotid Doppler showing nonstenotic plaque bilaterally and echocardiogram showing no atrial thrombus and preserved ejection fraction. Patient's blood pressure was gradually better controlled, dose of Norvasc has been increased, he was started on CHUYITA inhibitor and statin. Patient is currently medically stable for discharge with outpatient follow-up. He also has outpatient ophthalmology appointment today, which he intends to keep. Discharge discussed with: patient - Time Spent with Patient Total time spent providing and/or coordinating discharge services: Greater than 30 minutes (45 min) - Discharge Medications Prescriptions: amLODIPine [Norvasc] 10 mg PO DAILY #60 tablet Atorvastatin [Lipitor] 40 mg PO HS #30 tablet Lisinopril [Zestril] 10 mg PO DAILY #30 tablet Home Medications: Finasteride [Proscar] 5 mg PO DAILY 12/13/14 [History] Omeprazole [PriLOSEC] 20 mg PO DAILY 12/13/14 [History] Sertraline [Zoloft] 100 mg PO DAILY 12/13/14 [History] Aspirin [Lo-Dose Aspirin EC] 81 mg PO DAILY 06/30/17 [History] Metoprolol Succinate [Toprol Xl] 25 mg PO DAILY 06/30/17 [History] Atorvastatin [Lipitor] 40 mg PO HS #30 tablet 07/01/17 [Rx] Lisinopril [Zestril] 10 mg PO DAILY #30 tablet 07/01/17 [Rx] amLODIPine [Norvasc] 10 mg PO DAILY #60 tablet 07/01/17 [Rx] Allergies/Adverse Reactions: 3 Allergy/AdvReac Type Severity Reaction Status Date / Time No Known Allergies Allergy Verified 06/29/17 15:21 Date of admission: 06/30/17 06:23 Primary care physician: Willard Elam MD Discharging clinician: Larisa Mclean Anticipated date of discharge: 07/01/17 - Constitutional Vitals: Temp Pulse Resp BP Pulse Ox 98.4 F 86 16 163/81 99 07/01/17 07:55 07/01/17 08:52 07/01/17 07:55 07/01/17 07:55 07/01/17 04:15 General appearance: Present: A&O X 3, answers questions appropriately - Cardiovascular Cardiovascular exam: Present: RRR, +S1, +S2. Absent: diastolic murmur, gallop, rubs, systolic murmur - Neurological Exam Neurological exam: Present: CN II-XII intact (right 3rd nerve palsy with absent adduction and ptosis of right eyelid), oriented X3, no focal deficits. Absent: pronater drift, facial droop, speech deficit - Patient Status Disposition: Home, Self-Care Condition: Fair Functional capacity at discharge: independent ambulation Overall status at discharge: patient is progressing back to baseline - Discharge Instructions Follow Up With: Willard Elam MD [Primary Care Provider] - (OFFICE WILL NOT MAKE A FOLLOW UP APPOINTMENT THEY WANT THE PATIENT TO CALL AND MAKE THEIR OWN) Justin Luevano MD [Non-Partnered Physician] - 07/01/17 11:00 am Additional Instructions: F/up with PCP in 1-2 weeks - Diet and Activity Activity: resume usual activities as tolerated Diet: low fat, low cholesterol, low salt diet
--- NOTE | 2017-07-01 10:06 | Neurology Progress Note ---
<Shahid Garcia - Last Filed: 07/01/17 10:04> Date of Encounter: 07/01/17 Time of Encounter: 10:04 Assessment and Plan (1) CVA (cerebral vascular accident) Status: Ruled-out MRI negative for stroke. Echocardiogram shows LVEF of 60-65% without wall motion abnormalities, absent PFO. Carotid Doppler duplex shows nonstenotic plaques bilaterally. Plan: Patient should continue aspirin and statin outpatient. Patient may be discharged from neurological perspective. Qualifiers: CVA mechanism: unspecified Qualified Code(s): I63.9 - Cerebral infarction, unspecified (2) Cranial nerve III palsy Status: Acute Neurological exam continues to show right oculomotor nerve palsy. Plan: Patient will need a follow-up supervisor force adjustment appointment outpatient. Qualifiers: Laterality: right Qualified Code(s): 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, right eye (3) Diplopia Status: Acute Continues to have diplopia due to above. (4) Hypertensive emergency Status: Acute Patient's blood pressure this morning is 163/81. Recommend aggressive blood pressure control to decrease risk for CVA in future. Subjective Principal diagnosis: right third nerve palsy Interval history: This morning patient continues to have diplopia but reports it has improved. He denies any acute over night events. He denies headache, changes in hearing, numbness, tingling, difficulty swallowing. He is able to ambulate independently. Objective - Constitutional Vitals: Temp Pulse Resp BP Pulse Ox 98.4 F 86 16 163/81 99 07/01/17 07:55 07/01/17 08:52 07/01/17 07:55 07/01/17 07:55 07/01/17 04:15 - Neurological Exam Sensorimotor examination: Present: intact Motor Examination: Present: full strength in all major muscle groups Motor examination - right side: 5/5: deltoids, biceps, triceps, wrist flexion, wrist extension, ophthalmologist, hip flexors, tibialis Anterior, quadriceps, toe extension (EHL), plantarflexion Motor examination - left side: 5/5: deltoids, biceps, triceps, wrist flexion, wrist extension, hip flexors, ophthalmologist, quadriceps, tibialis Anterior, toe extension (EHL), plantarflexion Sensation intact: Present: intact Reflex and gait examination: intact Reflexes: Biceps: 2+, Triceps: 2+, Brachioradialis: 2+, Patella: 2+, Achilles: 2 + Mental Status Examination: Present: awake, alert, oriented to person, oriented to place, oriented to time, follows commands appropriately, answers questions appropriately, no aphasia, no aproxia, opens eyes to voice, makes eye contact Cranial nerve examination: Present: PERRL, visual ott intact, sensory to face intact, mastication intact, no facial asymmetry is present, no dysarthria, hearing is intact symmetrically, soft palate elevates bilaterally upon phonation , flexes SCM and trapezius muscles symmetrically with full power, tongue protrudes midline, no atrophy or facial fasiculations present Cranial Nerve Exam: CN III palsy: Right Cerebellar examination: Present: performs finger to nose and heel to shields symmetrically without ataxia (difficulty with finger to nose due to double vision which resolves when just using one eye ), no gait ataxia, no difficulty with rapid alternating movements Ocular dysmotility: ocular dysmetria - Other Additional findings: General: without distress HEENT: Head atraumatic, normocephalic, neck nontender to palpation, absent lymphadenopathy, Moist Mucous Membranes, Heart: Regular rate and rhythm with no murmur Lungs: Clear to auscultation bilaterally Abdomen: Soft nontender, nondistended positive bowel sounds Skin: warm and dry Extremities: Absent pedal edema, Vascular: Pedal and radial pulses 2 out of 4 Results - Laboratory Findings CBC and BMP: 06/30/17 05:19 18 04:49 Abnormal lab findings: Abnormal lab results ESR 15 mm/hr (0-10) H 06/29/17 16:21 POC Glucose 115 mg/dL (70-99) H 06/30/17 16:23 LDL Cholesterol, Calc 100 mg/dL (0-99) H 06/30/17 05:19 Consult Discharge Plan - Plan Additional Instructions: F/up with PCP in 1-2 weeks Referrals: Willard Elam MD [Primary Care Provider] - (OFFICE WILL NOT MAKE A FOLLOW UP APPOINTMENT THEY WANT THE PATIENT TO CALL AND MAKE THEIR OWN) Justin Luevano MD [Non-Partnered Physician] - 07/01/17 11:00 am Prescriptions: amLODIPine [Norvasc] 10 mg PO DAILY #60 tablet Atorvastatin [Lipitor] 40 mg PO HS #30 tablet Lisinopril [Zestril] 10 mg PO DAILY #30 tablet <Michelle Choi I - Last Filed: 07/06/17 22:35> Date of Encounter: 07/01/17 Assessment and Plan (1) Diplopia Status: Acute I examined this patient and my medical decision-making was reviewed with the Resident Physician, I agree with the documented findings, disposition and treatment plan as described except to the extent set forth below Michelle Choi MD Objective - Constitutional Vitals: Temp Pulse Resp BP Pulse Ox 98.4 F 86 16 163/81 99 07/01/17 07:55 07/01/17 08:52 07/01/17 07:55 07/01/17 07:55 07/01/17 04:15 Results - Laboratory Findings CBC and BMP: 06/30/17 05:19 07/01/17 04:49 Abnormal lab findings: Abnormal lab results ESR 15 mm/hr (0-10) H 06/29/17 16:21 POC Glucose 115 mg/dL (70-99) H 06/30/17 16:23 LDL Cholesterol, Calc 100 mg/dL (0-99) H 06/30/17 05:19
== END 2017-07-01 10:35 | disposition home or self-care (01) | DRG 305 ==
LOC: EMEROO 16:02 → 2NNU 16:02 → SUATTDRO 06-30 06:23
PROVIDERS: ADMIT Internal Medicine; ATTEND Internal Medicine

== ENCOUNTER 2017-08-04 10:15 | Observation (INO) ==
[2017-08-04] MEDS ORDERED: 0.9 % Sodium Chloride 1,000 ML IVC ONE (10:51)
--- NOTE | 2017-08-04 10:58 | Emergency Department Note ---
Disposition Clinical Impression: Elevated troponin, Near syncope, Exertional dyspnea Disposition: Admitted As Inpatient Condition: Good General Adult HPI - General Chief complaint: ED Shortness of Breath/Dyspnea Stated complaint: JESSICA,Dizziness Time Seen by Provider: 08/04/17 10:21 Source: patient, family Mode of arrival: ambulatory Limitations: no limitations Nursing Notes Reviewed: Yes Vital Signs Reviewed: Yes - History of Present Illness HPI Narrative: Patient presents to the ED the chief complaint of exertional dyspnea and near syncope. Patient reports that about a week ago he started developing generalized weakness and fatigue. States that he will get dizzy, but he describes the dizziness as a feeling that he is about to pass out. He denies any vertigo. He denies any chest pain associated with this but does state that he gets short of breath and is worse when he gets up and exerts himself. He has had some changes in vision. He was seen and evaluated for this previously and ophthalmology gave him an eye patch for his right eye due to it being "lazy". Denies any fever, chills, chest pain, abdominal pain, vomiting or diarrhea. Has been somewhat nauseated at times. No issues with urination. Pain Scale: 0 - Related Data Home Medications Medication Instructions Recorded Confirmed Aspirin [Lo-Dose Aspirin EC] 81 mg PO DAILY 06/30/17 08/04/17 Metoprolol Succinate [Toprol Xl] 25 mg PO DAILY 06/30/17 08/04/17 Finasteride [Proscar] 5 mg PO DAILY 08/04/17 08/04/17 Omeprazole [PriLOSEC] 20 mg PO BID 08/04/17 08/04/17 Sertraline [Zoloft] 100 mg PO DAILY 08/04/17 08/04/17 Previous Rx's Medication Instructions Recorded Atorvastatin [Lipitor] 40 mg PO HS #30 tablet 07/01/17 Lisinopril [Zestril] 10 mg PO DAILY #30 tablet 07/01/17 amLODIPine [Norvasc] 10 mg PO DAILY #60 tablet 07/01/17 Allergies Allergy/AdvReac Type Severity Reaction Status Date / Time No Known Allergies Allergy Verified 06/29/17 15:21 Review of Systems: As reviewed in the HPI. All other systems reviewed are negative or normal. Past Medical History - Past Medical History Attestation: Yes The following information was validated with the patient. Source: patient Medical history: Reports: cancer, hyperlipidemia, hypertension, other Surgical history: Reports: non-contributory Psychiatric history: Reports: anxiety, depression - Social History Smoking Status: Former smoker Smokeless Tobacco Status: No Alcohol use: Reports: occasionally Drug use: Reports: none Physical Exam CONSTITUTIONAL: [well appearing in no acute distress] SKIN: [Warm, dry, and intact without rash] EYES: [extraocular movements are grossly intact, clear conjunctiva, right eye patch in place] HENT: [Normocephalic, atraumatic, moist mucus membranes] NECK: [no obvious swelling, normal range of motion] PULMONARY: [normal chest rise and fall, no respiratory distress or stridor CARDIOVASCULAR: [regular rate, distal extremities are warm and well perfused, soft systolic murmur] GASTROINSTESTINAL: [nondistended, non-tender] GENITOURINARY: [deferred] NEUROLOGIC: [normal speech, moves all extremities, rapid alternating movements normal, finger to nose normal, cranial nerves II through XII are intact, normal gait] MUSCULOSKELETAL: [no gross deformities, atraumatic] PSYCHIATRIC: [normal mood and affect] - General General appearance: alert, in no apparent distress Course Course Narrative: Patient presenting with weakness, fatigue, exertional dyspnea and near syncope. We will workup and admit. Troponin is elevated at 0.05. We will administer aspirin. - Reevaluation(s) Reevaluation #1: patient admitted to Dr. Camarena Vital Signs Temperature 97.4 F L 08/04/17 10:18 Pulse Rate 88 08/04/17 10:18 Respiratory Rate 20 08/04/17 10:18 Blood Pressure 172/91 08/04/17 10:18 O2 Sat by Pulse Oximetry 96 08/04/17 10:18 Temperature 97.4 F L 08/04/17 10:27 Pulse Rate 88 08/04/17 13:14 Respiratory Rate 19 08/04/17 13:14 Blood Pressure 174/90 08/04/17 13:14 O2 Sat by Pulse Oximetry 95 08/04/17 13:14 Oxygen Delivery Oxygen Delivery Nasal Cannula Medical Decision Making - Medical Records Medical records reviewed: Yes I reviewed the patient's medical records. - Lab Data Lab results reviewed: Yes I reviewed the patient's lab results. Result diagrams: 08/04/17 10:31 08/04/17 10:31 Lab Results 08/04/17 08/04/17 08/04/17 Range/Units 10:31 10:31 10:31 WBC 11.5 H (4.3-11.1) K/mcL RBC 4.45 (4.19-5.50) M/mcL Hgb 14.2 (12.9-16.9) g/dL Hct 41.4 (37.5-50.1) % MCV 93.0 (83.0-100.0) fL MCH 31.9 (28.0-33.3) pg MCHC 34.3 (31.6-35.5) g/dL RDW 12.8 (11.5-14.5) % Plt Count 137 L (140-400) K/mcL MPV 9.8 (9.4-12.4) fL Immature Gran % 0.5 (0-4) % Seg Neutrophils % 69.9 % Lymphocytes % 21.3 % Monocytes % 6.3 % Eosinophils % 1.7 % Basophils % 0.3 % Neutrophils # 8.0 (1.6-8.9) K/mcL Lymphocytes # 2.5 (0.6-4.6) K/mcL Monocytes # 0.7 (0.0-1.3) K/mcL Eosinophils # 0.2 (0.0-0.6) K/mcL Basophils # 0.0 (0.0-0.2) K/mcL Sodium 139 (136-145) mEq/L Potassium 3.8 (3.5-5.1) mEq/L Chloride 109 H (98-107) mEq/L Carbon Dioxide 20 L (23-29) mEq/L BUN 18 (8-23) mg/dL Creatinine 1.01 (0.70-1.30) mg/dL Est GFR ( Amer) > 60 (> 60) Est GFR (Non-Af Amer) > 60 (> 60) BUN/Creatinine Ratio 18 (6-26) Glucose 157 H (70-105) mg/dL Calculated Osmolality 293 (280-300) Calcium 9.3 (8.6-10.3) mg/dL Magnesium 1.5 L (1.6-2.6) mg/dL Total Bilirubin 0.7 (0.3-1.0) mg/dL AST 13 (13-39) Units/L ALT 12 (7-52) Units/L Alkaline Phosphatase 61 (34-104) Units/L Troponin I 0.05 H* (< 0.04) ng/mL B-Natriuretic Peptide 90 (Less than 100) pg/mL Serum Total Protein 7.1 (6.4-8.9) g/dL Albumin 4.1 (3.5-5.7) g/dL Globulin 3.0 (2.4-3.5) g/dL Albumin/Globulin Ratio 1.4 (1.1-2.2) TSH 2.394 (0.340-5.600) mcIU/mL Urine Color (Yellow) Urine Clarity (Clear) Urine pH (5.0-8.0) pH Units Ur Specific [place] (1.010-1.025) Urine Protein (Neg-Trace) mg/dL Urine Glucose (UA) (Normal) mg/dL Urine Ketones (Negative) mg/dL Urine Blood (Negative) Urine Nitrite (Negative) Urine Bilirubin (Negative) Urine Urobilinogen (Normal) mg/dL Ur Leukocyte Esterase (Negative) Urine Microscopic RBC (0-3) per hpf Urine Microscopic WBC (0-3) per hpf Ur Squamous Epith Cells (None-Few) per lpf Urine Bacteria (None-Few) per hpf Hyaline Casts (None-Few) per lpf Ur Culture Indicated? (NO) 08/04/17 Range/Units 11:00 WBC (4.3-11.1) K/mcL RBC (4.19-5.50) M/mcL Hgb (12.9-16.9) g/dL Hct (37.5-50.1) % MCV (83.0-100.0) fL MCH (28.0-33.3) pg MCHC (31.6-35.5) g/dL RDW (11.5-14.5) % Plt Count (140-400) K/mcL MPV (9.4-12.4) fL Immature Gran % (0-4) % Seg Neutrophils % % Lymphocytes % % Monocytes % % Eosinophils % % Basophils % % Neutrophils # (1.6-8.9) K/mcL Lymphocytes # (0.6-4.6) K/mcL Monocytes # (0.0-1.3) K/mcL Eosinophils # (0.0-0.6) K/mcL Basophils # (0.0-0.2) K/mcL Sodium (136-145) mEq/L Potassium (3.5-5.1) mEq/L Chloride (98-107) mEq/L Carbon Dioxide (23-29) mEq/L BUN (8-23) mg/dL Creatinine (0.70-1.30) mg/dL Est GFR ( Amer) (> 60) Est GFR (Non-Af Amer) (> 60) BUN/Creatinine Ratio (6-26) Glucose (70-105) mg/dL Calculated Osmolality (280-300) Calcium (8.6-10.3) mg/dL Magnesium (1.6-2.6) mg/dL Total Bilirubin (0.3-1.0) mg/dL AST (13-39) Units/L ALT (7-52) Units/L Alkaline Phosphatase (34-104) Units/L Troponin I (< 0.04) ng/mL B-Natriuretic Peptide (Less than 100) pg/mL Serum Total Protein (6.4-8.9) g/dL Albumin (3.5-5.7) g/dL Globulin (2.4-3.5) g/dL Albumin/Globulin Ratio (1.1-2.2) TSH (0.340-5.600) mcIU/mL Urine Color Yellow (Yellow) Urine Clarity Clear (Clear) Urine pH 6.0 (5.0-8.0) pH Units Ur Specific [place] 1.019 (1.010-1.025) Urine Protein 30 H (Neg-Trace) mg/dL Urine Glucose (UA) Normal (Normal) mg/dL Urine Ketones Negative (Negative) mg/dL Urine Blood Negative (Negative) Urine Nitrite Negative (Negative) Urine Bilirubin Negative (Negative) Urine Urobilinogen Normal (Normal) mg/dL Ur Leukocyte Esterase Negative (Negative) Urine Microscopic RBC 0-3 (0-3) per hpf Urine Microscopic WBC 0-3 (0-3) per hpf Ur Squamous Epith Cells Moderate H (None-Few) per lpf Urine Bacteria None Seen (None-Few) per hpf Hyaline Casts None Seen (None-Few) per lpf Ur Culture Indicated? NO (NO) - Radiology Data Radiology results reviewed: Yes I reviewed the patient's radiology results. - EKG Data EKG #1 EKG attestation: Yes I reviewed and interpreted this EKG. EKG results narrative: Sinus rhythm, rate 90, MD interval 173, QRS 87, QTC 393, normal axis, no acute ischemic changes
[2017-08-04 11:03] LABS: Basophils % 0.3 %; Eosinophils # 0.2 K/mcL (0.0-0.6); Eosinophils % 1.7 %; Hematocrit 41.4 % (37.5-50.1); Hemoglobin 14.2 g/dL (12.9-16.9); Immature Granulocytes % 0.5 % (0-4); Lymphocytes # 2.5 K/mcL (0.6-4.6); Lymphocytes % 21.3 %; Mean Corpuscular HGB Conc 34.3 g/dL (31.6-35.5); Mean Corpuscular Hemoglobin 31.9 pg (28.0-33.3); Mean Platelet Volume 9.8 fL (9.4-12.4); Monocytes # 0.7 K/mcL (0.0-1.3); Monocytes % 6.3 %; Platelet Count 137 K/mcL (140-400); Red Blood Count 4.45 M/mcL (4.19-5.50); Red Cell Distribution Width 12.8 % (11.5-14.5); Segmented Neutrophils % 69.9 %
[2017-08-04 11:19] LABS: Troponin I 0.05 ng/mL (< 0.04)
[2017-08-04] MEDS ORDERED: Aspirin 325 MG TABLET PO ONE (11:21)
[2017-08-04 11:30] LABS: Alanine Aminotransferase 12 Units/L (7-52); Albumin 4.1 g/dL (3.5-5.7); Alkaline Phosphatase 61 Units/L (34-104); Aspartate Amino Transferase 13 Units/L (13-39); BUN/Creatinine Ratio 18 (6-26); Bilirubin,Total 0.7 mg/dL (0.3-1.0); Blood Urea Nitrogen 18 mg/dL (8-23); Calcium 9.3 mg/dL (8.6-10.3); Carbon Dioxide 20 mEq/L (23-29); Chloride 109 mEq/L (98-107); Glucose 157 mg/dL (70-105); Magnesium 1.5 mg/dL (1.6-2.6); Osmolality,Calculated 293 (280-300); Potassium 3.8 mEq/L (3.5-5.1); Sodium 139 mEq/L (136-145); Thyroid Stimulating Hormone 2.394 mcIU/mL (0.340-5.600); eGFR For African Americans > 60 (> 60); eGFR For Non-African Americans > 60 (> 60)
[2017-08-04 11:43] LABS: Bilirubin,Urine Negative (Negative); Blood,Urine Negative (Negative); Clarity,Urine Clear (Clear); Color,Urine Yellow (Yellow); Glucose,Urine (UA) Normal (Normal); Ketones,Urine Negative (Negative); Leukocyte Esterase,Urine Negative (Negative); Nitrite,Urine Negative (Negative); Protein,Urine 30 mg/dL (Neg-Trace); Specific Gravity,Urine 1.019 (1.010-1.025); Urobilinogen,Urine Normal (Normal)
[2017-08-04 11:45] LABS: Bacteria,Urine None Seen per hpf (None-Few); Hyaline Casts,Urine None Seen per lpf (None-Few); RBC,Urine 0-3 per hpf (0-3); Squamous Epithelial Cell,Urine Moderate per lpf (None-Few); WBC,Urine 0-3 per hpf (0-3)
--- NOTE | 2017-08-04 12:14 | Emergency Department Note ---
Disposition Clinical Impression: Elevated troponin Disposition: Admitted As Inpatient Referrals: Willard Elam MD [Primary Care Provider] - Forms: ED Satisfaction Letter General Adult HPI - General Chief complaint: ED Shortness of Breath/Dyspnea Stated complaint: JESSICA,Dizziness Time Seen by Provider: 08/04/17 10:21 Source: patient, family Mode of arrival: ambulatory Limitations: no limitations - History of Present Illness Pain Scale: 0 - Related Data Home Medications Medication Instructions Recorded Confirmed Aspirin [Lo-Dose Aspirin EC] 81 mg PO DAILY 06/30/17 08/04/17 Metoprolol Succinate [Toprol Xl] 25 mg PO DAILY 06/30/17 08/04/17 Finasteride [Proscar] 5 mg PO DAILY 08/04/17 08/04/17 Omeprazole [PriLOSEC] 20 mg PO BID 08/04/17 08/04/17 Sertraline [Zoloft] 100 mg PO DAILY 08/04/17 08/04/17 Previous Rx's Medication Instructions Recorded Atorvastatin [Lipitor] 40 mg PO HS #30 tablet 07/01/17 Lisinopril [Zestril] 10 mg PO DAILY #30 tablet 07/01/17 amLODIPine [Norvasc] 10 mg PO DAILY #60 tablet 07/01/17 Allergies Allergy/AdvReac Type Severity Reaction Status Date / Time No Known Allergies Allergy Verified 06/29/17 15:21 Past Medical History - Past Medical History Medical history: Reports: cancer, hyperlipidemia, hypertension, other Surgical history: Reports: non-contributory Psychiatric history: Reports: anxiety, depression - Social History Smoking Status: Former smoker Smokeless Tobacco Status: No Alcohol use: Reports: occasionally Drug use: Reports: none Physical Exam - General Limitations: no limitations General appearance: alert, in no apparent distress Course Vital Signs Temperature 97.4 F L 08/04/17 10:18 Pulse Rate 88 08/04/17 10:18 Respiratory Rate 20 08/04/17 10:18 Blood Pressure 172/91 08/04/17 10:18 O2 Sat by Pulse Oximetry 96 08/04/17 10:18 Temperature 97.4 F L 08/04/17 10:27 Pulse Rate 88 08/04/17 10:27 Respiratory Rate 20 08/04/17 10:27 Blood Pressure 172/91 08/04/17 10:27 O2 Sat by Pulse Oximetry 96 08/04/17 10:27 Oxygen Delivery Oxygen Delivery Room Air Medical Decision Making - Lab Data Result diagrams: 08/04/17 10:31 08/04/17 10:31 Lab Results 08/04/17 08/04/17 08/04/17 Range/Units 10:31 10:31 10:31 WBC 11.5 H (4.3-11.1) K/mcL RBC 4.45 (4.19-5.50) M/mcL Hgb 14.2 (12.9-16.9) g/dL Hct 41.4 (37.5-50.1) % MCV 93.0 (83.0-100.0) fL MCH 31.9 (28.0-33.3) pg MCHC 34.3 (31.6-35.5) g/dL RDW 12.8 (11.5-14.5) % Plt Count 137 L (140-400) K/mcL MPV 9.8 (9.4-12.4) fL Immature Gran % 0.5 (0-4) % Seg Neutrophils % 69.9 % Lymphocytes % 21.3 % Monocytes % 6.3 % Eosinophils % 1.7 % Basophils % 0.3 % Neutrophils # 8.0 (1.6-8.9) K/mcL Lymphocytes # 2.5 (0.6-4.6) K/mcL Monocytes # 0.7 (0.0-1.3) K/mcL Eosinophils # 0.2 (0.0-0.6) K/mcL Basophils # 0.0 (0.0-0.2) K/mcL Sodium 139 (136-145) mEq/L Potassium 3.8 (3.5-5.1) mEq/L Chloride 109 H (98-107) mEq/L Carbon Dioxide 20 L (23-29) mEq/L BUN 18 (8-23) mg/dL Creatinine 1.01 (0.70-1.30) mg/dL Est GFR ( Amer) > 60 (> 60) Est GFR (Non-Af Amer) > 60 (> 60) BUN/Creatinine Ratio 18 (6-26) Glucose 157 H (70-105) mg/dL Calculated Osmolality 293 (280-300) Calcium 9.3 (8.6-10.3) mg/dL Magnesium 1.5 L (1.6-2.6) mg/dL Total Bilirubin 0.7 (0.3-1.0) mg/dL AST 13 (13-39) Units/L ALT 12 (7-52) Units/L Alkaline Phosphatase 61 (34-104) Units/L Troponin I 0.05 H* (< 0.04) ng/mL B-Natriuretic Peptide 90 (Less than 100) pg/mL Albumin 4.1 (3.5-5.7) g/dL TSH 2.394 (0.340-5.600) mcIU/mL Urine Color (Yellow) Urine Clarity (Clear) Urine pH (5.0-8.0) pH Units Ur Specific [place] (1.010-1.025) Urine Protein (Neg-Trace) mg/dL Urine Glucose (UA) (Normal) mg/dL Urine Ketones (Negative) mg/dL Urine Blood (Negative) Urine Nitrite (Negative) Urine Bilirubin (Negative) Urine Urobilinogen (Normal) mg/dL Ur Leukocyte Esterase (Negative) Urine Microscopic RBC (0-3) per hpf Urine Microscopic WBC (0-3) per hpf Ur Squamous Epith Cells (None-Few) per lpf Urine Bacteria (None-Few) per hpf Hyaline Casts (None-Few) per lpf Ur Culture Indicated? (NO) 08/04/17 Range/Units 11:00 WBC (4.3-11.1) K/mcL RBC (4.19-5.50) M/mcL Hgb (12.9-16.9) g/dL Hct (37.5-50.1) % MCV (83.0-100.0) fL MCH (28.0-33.3) pg MCHC (31.6-35.5) g/dL RDW (11.5-14.5) % Plt Count (140-400) K/mcL MPV (9.4-12.4) fL Immature Gran % (0-4) % Seg Neutrophils % % Lymphocytes % % Monocytes % % Eosinophils % % Basophils % % Neutrophils # (1.6-8.9) K/mcL Lymphocytes # (0.6-4.6) K/mcL Monocytes # (0.0-1.3) K/mcL Eosinophils # (0.0-0.6) K/mcL Basophils # (0.0-0.2) K/mcL Sodium (136-145) mEq/L Potassium (3.5-5.1) mEq/L Chloride (98-107) mEq/L Carbon Dioxide (23-29) mEq/L BUN (8-23) mg/dL Creatinine (0.70-1.30) mg/dL Est GFR ( Amer) (> 60) Est GFR (Non-Af Amer) (> 60) BUN/Creatinine Ratio (6-26) Glucose (70-105) mg/dL Calculated Osmolality (280-300) Calcium (8.6-10.3) mg/dL Magnesium (1.6-2.6) mg/dL Total Bilirubin (0.3-1.0) mg/dL AST (13-39) Units/L ALT (7-52) Units/L Alkaline Phosphatase (34-104) Units/L Troponin I (< 0.04) ng/mL B-Natriuretic Peptide (Less than 100) pg/mL Albumin (3.5-5.7) g/dL TSH (0.340-5.600) mcIU/mL Urine Color Yellow (Yellow) Urine Clarity Clear (Clear) Urine pH 6.0 (5.0-8.0) pH Units Ur Specific [place] 1.019 (1.010-1.025) Urine Protein 30 H (Neg-Trace) mg/dL Urine Glucose (UA) Normal (Normal) mg/dL Urine Ketones Negative (Negative) mg/dL Urine Blood Negative (Negative) Urine Nitrite Negative (Negative) Urine Bilirubin Negative (Negative) Urine Urobilinogen Normal (Normal) mg/dL Ur Leukocyte Esterase Negative (Negative) Urine Microscopic RBC 0-3 (0-3) per hpf Urine Microscopic WBC 0-3 (0-3) per hpf Ur Squamous Epith Cells Moderate H (None-Few) per lpf Urine Bacteria None Seen (None-Few) per hpf Hyaline Casts None Seen (None-Few) per lpf Ur Culture Indicated? NO (NO) Attestation Statement - Attestation Attestation: I examined this patient and my medical decision-making was reviewed with the Resident Physician. I agree with the documented findings, disposition and treatment plan as described except to the extent set forth below. 81 year old male prsentse to the eD with complaints of JESSICA and dizziness. He is hypertensive to sysotlic >200, and it appears he has a new troponin level. WE will admit to medicine for cardiopulmonary evaluation.
[2017-08-04 13:05] LABS: Albumin/Globulin Ratio 1.4 (1.1-2.2); Total Protein 7.1 g/dL (6.4-8.9)
--- NOTE | 2017-08-04 13:54 | Electrocardiograph Report ---
[place] [id number] Test Date: 2017-08-04 Pat Name: Deny Ragland Department: 104 Room: 3B32 Gender: M [employer]: AM : 1935 Requested By: Alexa Camarena Order Number: [id number] Reading MD: Jessica Hernandez Measurements Intervals [place] Rate: 90 P: 38 TX: 173 QRS: 9 QRSD: 87 T: 32 QT: 345 QTc: 393 Interpretive Statements SINUS RHYTHM NONSPECIFIC ST & T-WAVE ABNORMALITY Electronically Signed On 08-04-2017 13:52:38 EDT by Jessica Hernandez
[2017-08-04] MEDS ORDERED: Naloxone 0.4 MG/ML INJ IVP PRN (14:56)
[2017-08-04] MEDS ORDERED: 0.9 % Sodium Chloride 1,000 ML IVC SCH (15:45)
--- NOTE | 2017-08-04 15:51 | Internal Med History&Physical ---
Date of Encounter: 08/04/17 Time of Encounter: 14:40 Internal Medicine - H&P: HPI Chief complaint: shortness of breath, lightheadedness Admitted From: Home Plans for Post Hospital Care: Home History of present illness: Mr. Ragland is a 81 year old male with PMH of HTN, HLD, Cranial nerve III palsy who presented to the ER for worsening of shortness of breath and lightheadedness. Pt states he has been experiencing lightheadedness and drop in blood pressure from supine to standing position for the last year. He states lately he has been getting short of breath with minimal ambulation and lightheadness. He denies any falls or syncopal episode. Pt was recently hospitalized in June 2015 for HTN emergency, diplopia, and concern for CVA. Neurology evaluated the patient and CVA was ruled out. Pt was given an eye patch to help with the double vision. He reports of no discomfort at rest. Pt is noted to have BP readings consistent with significant orthostatic hypotension. He states he has been noting this blood pressure drop from supine to standing position for months when he checks his blood pressure at home. He denies any headache, lightheadedness, chest pain, sob, abd pain, n/v, fever, or chills at this time. Past Med Surg Social Fam HX - Past Medical History Medical history: cancer, hyperlipidemia, hypertension, other Psychiatric history: anxiety, depression - Past Surgical History Surgical History: non-contributory - Social History Smoking Status: Former smoker Smokeless Tobacco Status: No Alcohol use: occasionally Drug use: none - Family History Father Living Status: Hx Family Cardiac Disorders: No Hx Family Respiratory Disorders: No Hx Family Cancer: No Hx Family GI Disorders: No Hx Family Endocrine Disorder: No Hx Family Neuromuscular Disorders: No Hx Family Neurologic Disorders: No Hx Family HEENT Disorders: No Hx Family Autoimmune Disorders: No Internal Medicine - H&P: Meds Aspirin [Lo-Dose Aspirin EC] 81 mg PO DAILY 06/30/17 [History] Atorvastatin [Lipitor] 40 mg PO HS #30 tablet 07/01/17 [Rx] Lisinopril [Zestril] 10 mg PO DAILY #30 tablet 07/01/17 [Rx] amLODIPine [Norvasc] 10 mg PO DAILY #60 tablet 07/01/17 [Rx] Finasteride [Proscar] 5 mg PO DAILY 08/04/17 [History] Omeprazole [PriLOSEC] 20 mg PO BID 08/04/17 [History] Sertraline [Zoloft] 100 mg PO DAILY 08/04/17 [History] 3 Allergy/AdvReac Type Severity Reaction Status Date / Time No Known Allergies Allergy Verified 06/29/17 15:21 All Systems PM: A 10-system review of systems was performed and is negative for pertinent findings except as documented above in the HPI. - Constitutional Constitutional: as per HPI - EENT Eyes: diplopia, no blurry vision, no dry eye, no loss of vision - Cardiovascular Cardiovascular ROS IM: dyspnea on exertion, lightheadedness (with exertion ), other, no chest pain, no orthopnea, no palpitations, no paroxysmal nocturnal dyspnea, no syncope - Respiratory Respiratory: no cough, no dyspnea, no hemoptysis, no wheezing, no pain on inspiration, no chest congestion - Gastrointestinal Gastrointestinal: no abdominal pain, no change in bowel habits, no constipation , no nausea - Constitutional Vitals: Temp Pulse Resp BP Pulse Ox 98.6 F 78 15 171/81 95 08/04/17 14:30 08/04/17 14:50 08/04/17 14:30 08/04/17 14:50 08/04/17 14:30 General appearance: Present: cooperative, A&O X 3, no acute distress, obese, answers questions appropriately - Head Head exam: Present: atraumatic, normocephalic - Eye Eye exam: Present: EOMI (nystagmus of the right eye ) - Respiratory Respiratory exam: Present: CTAB. Absent: accessory muscle use, rales, rhonchi, wheezes - Cardiovascular Cardiovascular exam: Present: RRR, +S1, +S2. Absent: diastolic murmur, gallop, rubs, systolic murmur - GI/Abdominal GI/Abdominal exam: Present: normal bowel sounds, soft, no peritoneal signs. Absent: distended, tenderness - Extremities Exam Extremities exam: Present: warm, radial pulses palpable and symmetrical. Absent : calf tenderness, cyanotic, pedal edema - Neurological Exam Neurological exam: Present: oriented X3, no focal deficits, strengths equal and symetr throughout. Absent: pronater drift, facial droop, speech deficit - Psychiatric Psychiatric exam: Present: normal affect, normal mood Internal Med - H&P Results - Labs CBC & Chem 7: 08/04/17 10:31 08/04/17 10:31 - Assessment and plan (1) Orthostatic hypotension Current Visit: Yes Status: Acute Assessment and plan: Pt reports of having shortness of breath and lightheadedness as he gets up from sitting to standing position with ambulation He denies any symptoms at rest BP readings consistent with orthostatic hypotension discontinued home dose of Amlodipine continue lisinopril will give gentle IV fluid hydration pt educated on nonpharmacological management for orthostatic hypotension will continue to closely monitor (2) Elevated troponin Current Visit: Yes Status: Acute Assessment and plan: given elevated BP readings, likely demand ischemia will trend serial TNI and closely monitor pt denies any chest pain or any signs of angina continue to closely monitor (3) Hypertension Current Visit: Yes Status: Chronic Assessment and plan: will continue home dose of lisinopril continue to closely monitor BP Qualifiers: Hypertension type: essential hypertension Qualified Code(s): I10 - Essential (primary) hypertension (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 Assessment and plan: continue supportive care as per primary neurologist Qualifiers: Laterality: right Qualified Code(s): 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
[2017-08-04] MEDS: *HR* Heparin 5,000 UNIT/ML VIAL SQ SCH (17:00)
[2017-08-05] MEDS: *HR* Heparin 5,000 UNIT/ML VIAL SQ SCH ×2 (05:51→20:37)
[2017-08-05 07:08] LABS: Basophils % 0.3 %; Eosinophils % 2.7 %; Hematocrit 37.5 % (37.5-50.1); Immature Granulocytes % 0.5 % (0-4); Lymphocytes % 23.2 %; Mean Corpuscular HGB Conc 33.6 g/dL (31.6-35.5); Mean Corpuscular Hemoglobin 30.8 pg (28.0-33.3); Mean Corpuscular Volume 91.7 fL (83.0-100.0); Mean Platelet Volume 9.8 fL (9.4-12.4); Monocytes % 7.6 %; Platelet Count 122 K/mcL (140-400); Red Blood Count 4.09 M/mcL (4.19-5.50); Red Cell Distribution Width 12.9 % (11.5-14.5); Segmented Neutrophils % 65.7 %
[2017-08-05 07:09] LABS: Eosinophils # 0.3 K/mcL (0.0-0.6); Lymphocytes # 2.3 K/mcL (0.6-4.6); Monocytes # 0.8 K/mcL (0.0-1.3); Neutrophils # 6.5 K/mcL (1.6-8.9)
[2017-08-05 07:16] LABS: Hemoglobin 12.6 g/dL (12.9-16.9)
[2017-08-05 07:28] LABS: BUN/Creatinine Ratio 17 (6-26); Blood Urea Nitrogen 15 mg/dL (8-23); Carbon Dioxide 23 mEq/L (23-29); Chloride 111 mEq/L (98-107); Glucose 104 mg/dL (70-105); Magnesium 1.8 mg/dL (1.6-2.6); Osmolality,Calculated 293 (280-300); Phosphorous 2.7 mg/dL (2.7-4.5); Potassium 4.3 mEq/L (3.5-5.1); Sodium 141 mEq/L (136-145); eGFR For African Americans > 60 (> 60); eGFR For Non-African Americans > 60 (> 60)
[2017-08-05] MEDS: Aspirin Enteric Coated 81 MG Tablet PO SCH (08:04)
[2017-08-05] MEDS: Finasteride 5 MG TABLET PO SCH (08:04)
[2017-08-05 11:04] LABS: Estimated Average Glucose 137 mg/dl; Hemoglobin A1C 6.4 %
--- NOTE | 2017-08-05 18:32 | Internal Med Progress Note ---
Date of Encounter: 08/05/17 Time of Encounter: 12:30 - Assessment and plan (1) Orthostatic hypotension Current Visit: Yes Status: Acute Assessment and plan: Patient has reported experiencing shortness of breath and lightheadedness with position changes injury ambulation no symptoms at rest. The pressure readings consistent with orthostatic hypotension. 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 We will decrease the dose of amlodipine 2.5 and continue to monitor if symptoms persist we will DC amlodipine Qualifiers: Hypertension type: essential hypertension Qualified Code(s): I10 - Essential (primary) hypertension (5) Hyperlipidemia Current Visit: No Status: Chronic Assessment and plan: continue home dose of statin therapy Qualifiers: Hyperlipidemia type: unspecified Qualified Code(s): E78.5 - Hyperlipidemia , unspecified (6) DVT prophylaxis Current Visit: No Status: Acute Assessment and plan: heparin SQ - Time Spent With Patient Total time spent is greater than 50% in coordination of care (as documented) at patient's floor/unit and/or counseling patient: - Subjective Interval history: This patient is new to me I did review medical records. Patient was seen and examined at bedside. Patient is sitting up in chair denies any lightheadedness chest pain or shortness of breath. He continues to experience double vision and has an eye patch on his eye. - Constitutional Vitals: Temp Pulse Resp BP Pulse Ox 98.7 F 83 14 175/78 95 08/05/17 15:09 08/05/17 17:09 08/05/17 15:09 08/05/17 17:09 08/05/17 15:09 General appearance: Present: cooperative, A&O X 3, no acute distress, obese, answers questions appropriately - Head Head exam: Present: atraumatic, normocephalic - Eye Eye exam: Present: PERRL, conjuntiva pink, sclera anicteric Pupils: Present: PERRL - Neck Neck exam general surgery: Present: supple, trachea midline. Absent: lymphadenopathy - Respiratory Respiratory exam: Present: CTAB. Absent: accessory muscle use, rales, rhonchi, wheezes - Cardiovascular Cardiovascular exam: Present: RRR, +S1, +S2. Absent: diastolic murmur, gallop, rubs, systolic murmur - GI/Abdominal GI/Abdominal exam: Present: normal bowel sounds, soft, no peritoneal signs. Absent: distended, tenderness - Extremities Exam Extremities exam: Present: warm, radial pulses palpable and symmetrical. Absent : calf tenderness, cyanotic, pedal edema - Neurological Exam Neurological exam: Present: CN II-XII intact, oriented X3, no focal deficits. Absent: pronater drift, facial droop, speech deficit Internal Medicine: Result - Labs CBC & Chem 7: 08/05/17 06:40 08/05/17 06:40 Labs: Short CBC 08/05/17 Range/Units 06:40 WBC 9.9 (4.3-11.1) K/mcL Hgb 12.6 L D (12.9-16.9) g/dL Hct 37.5 (37.5-50.1) % Plt Count 122 L (140-400) K/mcL Neutrophils # 6.5 (1.6-8.9) K/mcL BMP 08/05/17 06:40 Sodium 141 Potassium 4.3 Chloride 111 H Carbon Dioxide 23 BUN 15 Creatinine 0.89 Glucose 104 Calcium 9.0 Cardiac Enzymes 08/04/17 08/04/17 Range/Units 17:34 23:01 Troponin I 0.07 H* 0.05 H* (< 0.04) ng/mL Consult Discharge Plan - Plan Referrals: Willard Elam MD [Primary Care Provider] -
[2017-08-05] MEDS: amLODIPine 5 MG TABLET PO SCH (20:37)
[2017-08-06 05:10] LABS: Basophils % 0.3 %; Eosinophils # 0.3 K/mcL (0.0-0.6); Eosinophils % 2.7 %; Hematocrit 35.6 % (37.5-50.1); Hemoglobin 12.4 g/dL (12.9-16.9); Immature Granulocytes % 0.8 % (0-4); Lymphocytes # 2.3 K/mcL (0.6-4.6); Lymphocytes % 22.7 %; Mean Corpuscular HGB Conc 34.8 g/dL (31.6-35.5); Mean Platelet Volume 9.8 fL (9.4-12.4); Monocytes # 0.9 K/mcL (0.0-1.3); Monocytes % 8.5 %; Neutrophils # 6.6 K/mcL (1.6-8.9); Platelet Count 126 K/mcL (140-400); Red Blood Count 3.87 M/mcL (4.19-5.50); Red Cell Distribution Width 12.8 % (11.5-14.5)
[2017-08-06 05:29] LABS: BUN/Creatinine Ratio 19 (6-26); Blood Urea Nitrogen 16 mg/dL (8-23); Calcium 8.9 mg/dL (8.6-10.3); Carbon Dioxide 22 mEq/L (23-29); Chloride 110 mEq/L (98-107); Glucose 104 mg/dL (70-105); Osmolality,Calculated 291 (280-300); Potassium 4.1 mEq/L (3.5-5.1); Sodium 140 mEq/L (136-145); eGFR For African Americans > 60 (> 60); eGFR For Non-African Americans > 60 (> 60)
[2017-08-06] MEDS: *HR* Heparin 5,000 UNIT/ML VIAL SQ SCH (05:54)
[2017-08-06] MEDS: Aspirin Enteric Coated 81 MG Tablet PO SCH (08:27)
[2017-08-06] MEDS: Finasteride 5 MG TABLET PO SCH (08:27)
[2017-08-06] MEDS: amLODIPine 5 MG TABLET PO SCH (08:27)
[2017-08-06 11:48] VITALS: BP 130/75
--- NOTE | 2017-08-06 12:37 | Discharge Summary ---
- NOTES TO OUTPATIENT PROVIDER Notes to Outpatient Provider: Patient BP has been dropping during position change. 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 Ragland is a 81 year old male PMH of HTN HLD cranial nerve 3 palsy presented to the ED for worsening SOB and lightheadiness. He has been experiencing drop in blood pressure from supine to standing position for the last year. Lately he has been getting SOB and lighthedness. He denies any falls or syncopal episode. He was recently hospitalized June 2017 for HTN emergency diplopia nad concern for CVA. Neurology evaluated CVA ruled out Patient was given eye patch for diplopia which he states helps with the double vision. During this visit he was noted to have BP reading consistent with significant orthostatic hypotension. His amlodipine was stoppped and he was given IVF. He was advised to change position slowly. Amlodipine was restarted at a lower dose. His sx improved . He was advised to monitor BP and keep a log, he will follow up with PCP as outpatient. I rveiwed medications change and answered patient questions. He verbalized understanding He is hemodynamically stable and ready for discharge Discharge discussed with: patient - Time Spent with Patient Total time spent providing and/or coordinating discharge services: - Discharge Medications Prescriptions: amLODIPine [Norvasc] 2.5 mg PO DAILY #5 tablet Home Medications: Aspirin [Lo-Dose Aspirin EC] 81 mg PO DAILY 06/30/17 [History] Atorvastatin [Lipitor] 40 mg PO HS #30 tablet 07/01/17 [Rx] Lisinopril [Zestril] 10 mg PO DAILY #30 tablet 07/01/17 [Rx] amLODIPine [Norvasc] 10 mg PO DAILY #60 tablet 07/01/17 [Rx] Finasteride [Proscar] 5 mg PO DAILY 08/04/17 [History] Omeprazole [PriLOSEC] 20 mg PO BID 08/04/17 [History] Sertraline [Zoloft] 100 mg PO DAILY 08/04/17 [History] amLODIPine [Norvasc] 2.5 mg PO DAILY #5 tablet 08/06/17 [Rx] Allergies/Adverse Reactions: 3 Allergy/AdvReac Type Severity Reaction Status Date / Time No Known Allergies Allergy Verified 06/29/17 15:21 Date of admission: 08/04/17 13:11 Primary care physician: Willard Elam MD Discharging clinician: Chela Williamson Anticipated date of discharge: 08/06/17 - Constitutional Vitals: Temp Pulse Resp BP Pulse Ox 97.8 F 82 17 130/75 96 08/06/17 11:46 08/06/17 11:46 08/06/17 11:46 08/06/17 11:46 08/06/17 11:46 General appearance: Present: cooperative, A&O X 3, no acute distress, obese, answers questions appropriately - Head Head exam: Present: atraumatic, normocephalic - Eye Eye exam: Present: PERRL, conjuntiva pink, sclera anicteric Pupils: Present: PERRL - Neck Neck exam general surgery: Present: supple, trachea midline. Absent: lymphadenopathy - Respiratory Respiratory exam: Present: CTAB. Absent: accessory muscle use, rales, rhonchi, wheezes - Cardiovascular Cardiovascular exam: Present: RRR, +S1, +S2. Absent: diastolic murmur, gallop, rubs, systolic murmur - GI/Abdominal GI/Abdominal exam: Present: normal bowel sounds, soft, no peritoneal signs. Absent: distended, tenderness - Extremities Exam Extremities exam: Present: warm, radial pulses palpable and symmetrical. Absent : calf tenderness, cyanotic, pedal edema - Neurological Exam Neurological exam: Present: CN II-XII intact, oriented X3, no focal deficits. Absent: pronater drift, facial droop, speech deficit - Skin Skin exam: Present: dry, intact - Patient Status Disposition: Home, Self-Care Condition: Good Functional capacity at discharge: independent ambulation Overall status at discharge: patient is back to baseline - Discharge Instructions Instructions: Chronic Hypertension (DC), Hypotension (DC), Hypomagnesemia (DC) Follow Up With: Willard Elam MD [Primary Care Provider] - (Please call the office to schedule a hospital follow up.) Diana Rich MD [Partnered Physician] - - Diet and Activity Activity: other Diet: advance to your usual diet
== END 2017-08-06 13:13 | disposition home or self-care (01) ==
LOC: 3BNU 10:15 → EMEROO 10:15 → 3BNU 14:03
PROVIDERS: ADMIT Internal Medicine; ATTEND Internal Medicine

== ENCOUNTER 2017-12-13 12:07 | Observation (INO) ==
[2017-12-13] MEDS ORDERED: 0.9 % Sodium Chloride 1,000 ML ONE (12:13)
--- NOTE | 2017-12-13 12:33 | Emergency Department Note ---
Disposition Clinical Impression: Seizure-like activity, Hypertension, Altered mental status, Lactic acidosis Disposition: Admitted As Inpatient Condition: Fair General Adult HPI - General Chief complaint: ED Altered Mental Status Stated complaint: Unresponsive Time Seen by Provider: 12/13/17 12:20 Source: EMS Limitations: other - History of Present Illness Pain Scale: 0 - Related Data Home Medications Medication Instructions Recorded Confirmed Amlodipine Besylate 2.5 mg PO DAILY 12/13/17 12/13/17 Aspirin [Adult Aspirin] 81 mg PO DAILY 12/13/17 12/13/17 Atorvastatin [Lipitor] 40 mg PO HS 12/13/17 12/13/17 Finasteride [Proscar] 5 mg PO DAILY 12/13/17 12/13/17 Fludrocortisone Acetate [Florinef] 0.2 mg PO QAM 12/13/17 12/13/17 Omeprazole [PriLOSEC] 20 mg PO DAILY 12/13/17 12/13/17 Sertraline [Zoloft] 100 mg PO DAILY 12/13/17 12/13/17 Allergies Allergy/AdvReac Type Severity Reaction Status Date / Time No Known Allergies Allergy Verified 12/13/17 12:58 Past Medical History - Past Medical History Medical history: Reports: other - Social History Smoking Status: Unknown if ever smoked Physical Exam - General Limitations: other General appearance: cachectic Course Vital Signs Temperature 97.9 F 12/13/17 12:07 Pulse Rate 93 12/13/17 12:07 Respiratory Rate 26 12/13/17 12:07 Blood Pressure 0/0 12/13/17 12:07 O2 Sat by Pulse Oximetry 91 12/13/17 12:07 Temperature 98.6 F 12/13/17 19:00 Pulse Rate 85 12/13/17 19:00 Respiratory Rate 16 12/13/17 19:00 Blood Pressure 173/94 12/13/17 19:00 O2 Sat by Pulse Oximetry 93 12/13/17 19:00 Oxygen Delivery Oxygen Delivery Nasal Cannula Medical Decision Making - Lab Data Result diagrams: 12/13/17 12:23 12/13/17 12:23 Lab Results 12/13/17 12/13/17 12/13/17 Range/Units 12:23 12:23 12:23 WBC 11.0 (4.3-11.1) K/mcL RBC 4.72 (4.19-5.50) M/mcL Hgb 14.2 (12.9-16.9) g/dL Hct 43.4 (37.5-50.1) % MCV 91.9 (83.0-100.0) fL MCH 30.1 (28.0-33.3) pg MCHC 32.7 (31.6-35.5) g/dL RDW 12.9 (11.5-14.5) % Plt Count 150 (140-400) K/mcL MPV 10.3 (9.4-12.4) fL Immature Gran % 0.5 (0-4) % Seg Neutrophils % 62.8 % Lymphocytes % 27.8 % Monocytes % 7.7 % Eosinophils % 0.9 % Basophils % 0.3 % Neutrophils # 6.9 (1.6-8.9) K/mcL Lymphocytes # 3.1 (0.6-4.6) K/mcL Monocytes # 0.9 (0.0-1.3) K/mcL Eosinophils # 0.1 (0.0-0.6) K/mcL Basophils # 0.0 (0.0-0.2) K/mcL PT 13.2 H (9.4-12.1) Seconds INR 1.2 Sodium 142 (136-145) mEq/L Potassium 3.0 L (3.5-5.1) mEq/L Chloride 102 (98-107) mEq/L Carbon Dioxide 19 L (23-29) mEq/L BUN 20 (8-23) mg/dL Creatinine 1.15 (0.70-1.30) mg/dL Est GFR ( Amer) > 60 (> 60) Est GFR (Non-Af Amer) > 60 (> 60) BUN/Creatinine Ratio 17 (6-26) Glucose 129 H (70-105) mg/dL Calculated Osmolality 298 (280-300) Lactic Acid (0.5-2.2) mmol/L Calcium 9.3 (8.6-10.3) mg/dL Magnesium 1.5 L (1.6-2.6) mg/dL Total Bilirubin 1.1 H (0.3-1.0) mg/dL AST 15 (13-39) Units/L ALT 11 (7-52) Units/L Alkaline Phosphatase 71 (34-104) Units/L Creatine Kinase 83 (30-223) Units/L Troponin I < 0.03 (< 0.04) ng/mL Serum Total Protein 6.9 (6.4-8.9) g/dL Albumin 4.3 (3.5-5.7) g/dL Globulin 2.6 (2.4-3.5) g/dL Albumin/Globulin Ratio 1.7 (1.1-2.2) Urine Color (Yellow) Urine Clarity (Clear) Urine pH (5.0-8.0) pH Units Ur Specific [place] (1.010-1.025) Urine Protein (Neg-Trace) mg/dL Urine Glucose (UA) (Normal) mg/dL Urine Ketones (Negative) mg/dL Urine Blood (Negative) Urine Nitrite (Negative) Urine Bilirubin (Negative) Urine Urobilinogen (Normal) mg/dL Ur Leukocyte Esterase (Negative) Urine Microscopic RBC (0-3) per hpf Urine Microscopic WBC (0-3) per hpf Ur Squamous Epith Cells (None-Few) per lpf Urine Bacteria (None-Few) per hpf Hyaline Casts (None-Few) per lpf 12/13/17 12/13/17 12/13/17 Range/Units 12:25 13:00 13:34 WBC (4.3-11.1) K/mcL RBC (4.19-5.50) M/mcL Hgb (12.9-16.9) g/dL Hct (37.5-50.1) % MCV (83.0-100.0) fL MCH (28.0-33.3) pg MCHC (31.6-35.5) g/dL RDW (11.5-14.5) % Plt Count (140-400) K/mcL MPV (9.4-12.4) fL Immature Gran % (0-4) % Seg Neutrophils % % Lymphocytes % % Monocytes % % Eosinophils % % Basophils % % Neutrophils # (1.6-8.9) K/mcL Lymphocytes # (0.6-4.6) K/mcL Monocytes # (0.0-1.3) K/mcL Eosinophils # (0.0-0.6) K/mcL Basophils # (0.0-0.2) K/mcL PT (9.4-12.1) Seconds INR Sodium (136-145) mEq/L Potassium (3.5-5.1) mEq/L Chloride (98-107) mEq/L Carbon Dioxide (23-29) mEq/L BUN (8-23) mg/dL Creatinine (0.70-1.30) mg/dL Est GFR ( Amer) (> 60) Est GFR (Non-Af Amer) (> 60) BUN/Creatinine Ratio (6-26) Glucose (70-105) mg/dL Calculated Osmolality (280-300) Lactic Acid > 10.0 H* 2.6 H (0.5-2.2) mmol/L Calcium (8.6-10.3) mg/dL Magnesium (1.6-2.6) mg/dL Total Bilirubin (0.3-1.0) mg/dL AST (13-39) Units/L ALT (7-52) Units/L Alkaline Phosphatase (34-104) Units/L Creatine Kinase (30-223) Units/L Troponin I (< 0.04) ng/mL Serum Total Protein (6.4-8.9) g/dL Albumin (3.5-5.7) g/dL Globulin (2.4-3.5) g/dL Albumin/Globulin Ratio (1.1-2.2) Urine Color Yellow (Yellow) Urine Clarity Clear (Clear) Urine pH 6.0 (5.0-8.0) pH Units Ur Specific [place] 1.024 (1.010-1.025) Urine Protein 100 H (Neg-Trace) mg/dL Urine Glucose (UA) Normal (Normal) mg/dL Urine Ketones Trace H (Negative) mg/dL Urine Blood Negative (Negative) Urine Nitrite Negative (Negative) Urine Bilirubin Negative (Negative) Urine Urobilinogen Normal (Normal) mg/dL Ur Leukocyte Esterase Negative (Negative) Urine Microscopic RBC 5-15 H (0-3) per hpf Urine Microscopic WBC 0-3 (0-3) per hpf Ur Squamous Epith Cells Many H (None-Few) per lpf Urine Bacteria None Seen (None-Few) per hpf Hyaline Casts None Seen (None-Few) per lpf Critical Care Time Critical Care Time: Yes Total Critical Care Time: 30 Attestation: The high probability of a clinically significant, sudden or life threatening deterioration of the [] system(s) required my full and direct attention, intervention and personal management. The aggregate critical care time was [] minutes. This time is in addition to time spent performing reported procedures but includes the following: [] Data Review and interpretation [] Patient assessment and monitoring of vital signs [] Documentation [] Medication orders and management Attestation Statement - Attestation Attestation: I examined this patient and my medical decision-making was reviewed with the Resident Physician. I agree with the documented findings, disposition and treatment plan as described except to the extent set forth below. [id number] time provided Patient presents as a Tay Rubin. It was reported that he had a syncopal event and was found down with possible seizure-like activity. The patient presents confused. His brother is present and provides additional history that the patient has no known seizure disorder. The patient is confused on exam and appears to be postictal. No medication list is available at the time of his initial arrival.
--- NOTE | 2017-12-13 12:38 | Emergency Department Note ---
Disposition Clinical Impression: Seizure-like activity, Lactic acidosis Hypertension Qualifiers: Hypertension type: unspecified Qualified Code(s): I10 - Essential (primary) hypertension Altered mental status Qualifiers: Altered mental status type: unspecified Qualified Code(s): R41.82 - Altered mental status, unspecified Disposition: Admitted As Inpatient Condition: Fair Referrals: Willard Elam MD [Primary Care Provider] - Forms: ED Satisfaction Letter Time of Disposition: 14:09 General Adult HPI - General Chief complaint: ED Altered Mental Status Stated complaint: Unresponsive Time Seen by Provider: 12/13/17 12:20 Source: family, EMS Mode of arrival: EMS Limitations: other Nursing Notes Reviewed: Yes Vital Signs Reviewed: Yes - History of Present Illness HPI Narrative: Patient presents for syncope and seizure. Patient presents via EMS. EMS reported the patient was outside. Family provide additional history later on stated the patient was outside watching people work when he felt lightheaded and fell down. Bystanders did state that he hit his head. No LOC at that time. Patient then got up and was very shaky and fell down again. Possible seizure activity witnessed by bystanders the last approximate 2 minutes and described as generalized shaking. Patient does not have a history of seizure disorder. Family initially arising the patient does have a history of hypertension as well as remote history of renal cancer. Patient is not any type of blood thinners. Upon arrival the patient does appear acutely altered with a decreased GCS however is maintaining his airway. Patient's initial blood sugar was in the 120s. Concerns of a possible post ictal. Patient was moving all extremities. Would withdraw to pain. Would open eyes spontaneously. Patient was rushed to CT scan for CT of the head and cervical spine. Did accompany the patient to the CT scanner. Pain Scale: 0 - Related Data Home Medications Medication Instructions Recorded Confirmed Amlodipine Besylate 2.5 mg PO DAILY 12/13/17 12/13/17 Aspirin [Adult Aspirin] 81 mg PO DAILY 12/13/17 12/13/17 Atorvastatin [Lipitor] 40 mg PO HS 12/13/17 12/13/17 Finasteride [Proscar] 5 mg PO DAILY 12/13/17 12/13/17 Fludrocortisone Acetate [Florinef] 0.2 mg PO QAM 12/13/17 12/13/17 Omeprazole [PriLOSEC] 20 mg PO DAILY 12/13/17 12/13/17 Sertraline [Zoloft] 100 mg PO DAILY 12/13/17 12/13/17 Allergies Allergy/AdvReac Type Severity Reaction Status Date / Time No Known Allergies Allergy Verified 12/13/17 12:58 All systems ED: reviewed and negative except as stated. Constitutional: Denies: fever Cardiovascular: Denies: chest pain Respiratory: Denies: cough, dyspnea, wheezes Gastrointestinal: Denies: nausea, vomiting Past Medical History - Past Medical History Source: patient, obtained from family Medical history: Reports: other - Social History Smoking Status: Unknown if ever smoked Physical Exam - General Limitations: other General appearance: in no apparent distress - Head Head exam: atraumatic, normocephalic, normal inspection - Eye Eye exam: Present: normal appearance, EOMI - ENT ENT exam: normal exam, mucous membranes moist - Neck Neck exam: Present: normal inspection - Chest Chest inspection: Present: normal inspection, symmetric chest wall rise - Respiratory Respiratory exam: Present: normal lung sounds bilaterally. Absent: respiratory distress - Cardiovascular Cardiovascular exam: Present: regular rate, normal rhythm. Absent: systolic murmur - Abdominal Exam Abdominal exam: Present: soft, Non-Tender - Extremities Exam Extremities exam: Present: normal inspection. Absent: pedal edema - Neurological Exam Neurological exam: Present: alert, CN II-XII intact - Expanded Neurological Exam Patient oriented to: Present: person Cranial nerves: EOM function (II, III, IV, ): Normal, facial sensation (V): Normal, facial palsy (VII): Normal, spinal accessory function (XI): Normal, tongue deviation (XII): Normal Motor strength - LUE: 5/5 Motor strength - RUE: 5/5 Motor strength - LLE: 5/5 Motor strength - RLE: 5/5 Coma Scale Eye Opening: To Voice Coma Scale Motor Response: Withdraws to Pain Coma Scale Verbal Response: Inappropriate Coma Scale Total: 10 - Skin Skin exam: Present: warm, dry, intact, normal color Course Course Narrative: Patient arrived with syncope then possible seizure. Patient had immediate head CT. Patient was maintaining his airway however did have a decreased GCS. Patient was not a stroke alert given the patient did have a seizure. Patient became more more responsive after turning from the CT scanner. Patient is conversant. Patient is able to recall family and friends at bedside. Review the medication list shows the patient is on blood pressure medication. Patient is not any blood thinners besides he 1 mg of aspirin. - Reevaluation(s) Reevaluation #1: Did contact radiology regarding this patient's head CT. Awaiting official interpretation. Time: 12:55 Reevaluation #2: Patient seen and examined. Patient's resting comfortably. Patient GCS of 15. Moving all extremities nonfocal exam. Denies any pain. Patient states that he did feel dizzy earlier today. Patient states he did take his blood pressure medication earlier today. Patient's repeat blood pressure is 168 systolic. Careful not to titrate the patient's blood pressure down too aggressively. Time: 13:16 Reevaluation #3: Patient's lactate had trended down. Patient blood pressure did start to creep back up. Will start a nicardipine a 2.5 mg. Patient continues to be asymptomatic. Time: 14:04 Vital Signs Temperature 97.9 F 12/13/17 12:07 Pulse Rate 93 12/13/17 12:07 Respiratory Rate 26 12/13/17 12:07 Blood Pressure 0/0 12/13/17 12:07 O2 Sat by Pulse Oximetry 91 12/13/17 12:07 Temperature 97.9 F 12/13/17 12:07 Pulse Rate 92 12/13/17 13:53 Respiratory Rate 16 12/13/17 13:53 Blood Pressure 182/94 12/13/17 13:53 O2 Sat by Pulse Oximetry 91 12/13/17 13:53 Oxygen Delivery Oxygen Delivery Nasal Cannula Medical Decision Making - [facility] Narrative Medical decision making narrative: Patient presented with alteration in mental status. Patient had decreased responsiveness. Reports via EMS were possible syncope and then a seizure. On arrival the patient was maintaining his airway but did have a decrease GCS. Patient is moving all extremities. Eyes open spontaneously. Patient was taken immediately to CAT scan a company the patient to the CT scanner. Coming back from the CT scan of the patient became more more responsive asking questions appropriately. Patient was possibly postictal at that time. Patient was noted have an elevated blood pressure. Concerns of a potential trigger of the patient 's symptoms. Patient did receive initial orbital 10 mg which did decrease his blood pressure. Concerns of over aggressive blood pressure management. Will titrate blood pressure to a goal systolic of 165. Patient's EKG shows diffuse ST depression with no ST elevation. Patient denying chest pain or abdominal pain. No nausea or vomiting. Patient's lactate was noted be elevated. Consistent with a possible seizure. Repeat lactate has trended down. - Lab Data Lab results reviewed: Yes I reviewed the patient's lab results. Result diagrams: 12/13/17 12:23 12/13/17 12:23 Lab Results 12/13/17 12/13/17 12/13/17 Range/Units 12:23 12:23 12:23 WBC 11.0 (4.3-11.1) K/mcL RBC 4.72 (4.19-5.50) M/mcL Hgb 14.2 (12.9-16.9) g/dL Hct 43.4 (37.5-50.1) % MCV 91.9 (83.0-100.0) fL MCH 30.1 (28.0-33.3) pg MCHC 32.7 (31.6-35.5) g/dL RDW 12.9 (11.5-14.5) % Plt Count 150 (140-400) K/mcL MPV 10.3 (9.4-12.4) fL Immature Gran % 0.5 (0-4) % Seg Neutrophils % 62.8 % Lymphocytes % 27.8 % Monocytes % 7.7 % Eosinophils % 0.9 % Basophils % 0.3 % Neutrophils # 6.9 (1.6-8.9) K/mcL Lymphocytes # 3.1 (0.6-4.6) K/mcL Monocytes # 0.9 (0.0-1.3) K/mcL Eosinophils # 0.1 (0.0-0.6) K/mcL Basophils # 0.0 (0.0-0.2) K/mcL PT 13.2 H (9.4-12.1) Seconds INR 1.2 Sodium 142 (136-145) mEq/L Potassium 3.0 L (3.5-5.1) mEq/L Chloride 102 (98-107) mEq/L Carbon Dioxide 19 L (23-29) mEq/L BUN 20 (8-23) mg/dL Creatinine 1.15 (0.70-1.30) mg/dL Est GFR ( Amer) > 60 (> 60) Est GFR (Non-Af Amer) > 60 (> 60) BUN/Creatinine Ratio 17 (6-26) Glucose 129 H (70-105) mg/dL Calculated Osmolality 298 (280-300) Lactic Acid (0.5-2.2) mmol/L Calcium 9.3 (8.6-10.3) mg/dL Magnesium 1.5 L (1.6-2.6) mg/dL Total Bilirubin 1.1 H (0.3-1.0) mg/dL AST 15 (13-39) Units/L ALT 11 (7-52) Units/L Alkaline Phosphatase 71 (34-104) Units/L Creatine Kinase 83 (30-223) Units/L Troponin I < 0.03 (< 0.04) ng/mL Serum Total Protein 6.9 (6.4-8.9) g/dL Albumin 4.3 (3.5-5.7) g/dL Globulin 2.6 (2.4-3.5) g/dL Albumin/Globulin Ratio 1.7 (1.1-2.2) Urine Color (Yellow) Urine Clarity (Clear) Urine pH (5.0-8.0) pH Units Ur Specific [place] (1.010-1.025) Urine Protein (Neg-Trace) mg/dL Urine Glucose (UA) (Normal) mg/dL Urine Ketones (Negative) mg/dL Urine Blood (Negative) Urine Nitrite (Negative) Urine Bilirubin (Negative) Urine Urobilinogen (Normal) mg/dL Ur Leukocyte Esterase (Negative) Urine Microscopic RBC (0-3) per hpf Urine Microscopic WBC (0-3) per hpf Ur Squamous Epith Cells (None-Few) per lpf Urine Bacteria (None-Few) per hpf Hyaline Casts (None-Few) per lpf 12/13/17 12/13/17 12/13/17 Range/Units 12:25 13:00 13:34 WBC (4.3-11.1) K/mcL RBC (4.19-5.50) M/mcL Hgb (12.9-16.9) g/dL Hct (37.5-50.1) % MCV (83.0-100.0) fL MCH (28.0-33.3) pg MCHC (31.6-35.5) g/dL RDW (11.5-14.5) % Plt Count (140-400) K/mcL MPV (9.4-12.4) fL Immature Gran % (0-4) % Seg Neutrophils % % Lymphocytes % % Monocytes % % Eosinophils % % Basophils % % Neutrophils # (1.6-8.9) K/mcL Lymphocytes # (0.6-4.6) K/mcL Monocytes # (0.0-1.3) K/mcL Eosinophils # (0.0-0.6) K/mcL Basophils # (0.0-0.2) K/mcL PT (9.4-12.1) Seconds INR Sodium (136-145) mEq/L Potassium (3.5-5.1) mEq/L Chloride (98-107) mEq/L Carbon Dioxide (23-29) mEq/L BUN (8-23) mg/dL Creatinine (0.70-1.30) mg/dL Est GFR ( Amer) (> 60) Est GFR (Non-Af Amer) (> 60) BUN/Creatinine Ratio (6-26) Glucose (70-105) mg/dL Calculated Osmolality (280-300) Lactic Acid > 10.0 H* 2.6 H (0.5-2.2) mmol/L Calcium (8.6-10.3) mg/dL Magnesium (1.6-2.6) mg/dL Total Bilirubin (0.3-1.0) mg/dL AST (13-39) Units/L ALT (7-52) Units/L Alkaline Phosphatase (34-104) Units/L Creatine Kinase (30-223) Units/L Troponin I (< 0.04) ng/mL Serum Total Protein (6.4-8.9) g/dL Albumin (3.5-5.7) g/dL Globulin (2.4-3.5) g/dL Albumin/Globulin Ratio (1.1-2.2) Urine Color Yellow (Yellow) Urine Clarity Clear (Clear) Urine pH 6.0 (5.0-8.0) pH Units Ur Specific [place] 1.024 (1.010-1.025) Urine Protein 100 H (Neg-Trace) mg/dL Urine Glucose (UA) Normal (Normal) mg/dL Urine Ketones Trace H (Negative) mg/dL Urine Blood Negative (Negative) Urine Nitrite Negative (Negative) Urine Bilirubin Negative (Negative) Urine Urobilinogen Normal (Normal) mg/dL Ur Leukocyte Esterase Negative (Negative) Urine Microscopic RBC 5-15 H (0-3) per hpf Urine Microscopic WBC 0-3 (0-3) per hpf Ur Squamous Epith Cells Many H (None-Few) per lpf Urine Bacteria None Seen (None-Few) per hpf Hyaline Casts None Seen (None-Few) per lpf - Radiology Data Radiology results reviewed: Yes I reviewed the patient's radiology results. Cervical Spine CT 12/13/17 12:23 IMPRESSION: No acute abnormality of the cervical spine. D/ / Diana Arias MD / Diana Arias MD Interpreting Provider: Diana Arias MD Head CT 12/13/17 12:23 IMPRESSION: 1. Partially limited study due to patient motion despite multiple repeated attempts at scanning. Within this limitation, no definite acute intracranial abnormality is identified. 2. Mild age-appropriate diffuse atrophy with minimal chronic small vessel ischemic changes. D/ / Tejas Velazco MD / Tejas Velazco MD Interpreting Provider: Tejas Velazco MD Chest X-Ray 12/13/17 12:24 IMPRESSION: Findings suggest congestive heart failure D/ / Tejas Francisco MD / Tejas Francisco MD Interpreting Provider: Tejas Francisco MD - EKG Data EKG #1 EKG attestation: Yes I reviewed and interpreted this EKG. EKG shows normal: sinus rhythm Rate: normal Rhythm: NSR [place]/QRS: normal ST segment depression in: II, III, v2, v3, v4, v5, v6 When compared to previous EKG there are: previous EKG unavailable Interpretation: nonspecific ST-T wave changes S.B.A.R. - S.B.A.R. Situation: Demographics Background: Presenting Complaint Assessment: Vital Signs, Course and respsone to treatment, Patient/Family Expectation Recommendation: Barrier(s) to disposition, Recommendation based on pending studies, treatments, or consults Adenike Report Given to: Hospitalist Adenike Repor Time: 14:10
[2017-12-13 12:39] LABS: Basophils % 0.3 %; Eosinophils # 0.1 K/mcL (0.0-0.6); Eosinophils % 0.9 %; Hematocrit 43.4 % (37.5-50.1); Hemoglobin 14.2 g/dL (12.9-16.9); Immature Granulocytes % 0.5 % (0-4); Lymphocytes # 3.1 K/mcL (0.6-4.6); Lymphocytes % 27.8 %; Mean Corpuscular HGB Conc 32.7 g/dL (31.6-35.5); Mean Corpuscular Hemoglobin 30.1 pg (28.0-33.3); Mean Corpuscular Volume 91.9 fL (83.0-100.0); Mean Platelet Volume 10.3 fL (9.4-12.4); Monocytes # 0.9 K/mcL (0.0-1.3); Monocytes % 7.7 %; Neutrophils # 6.9 K/mcL (1.6-8.9); Platelet Count 150 K/mcL (140-400); Red Blood Count 4.72 M/mcL (4.19-5.50); Red Cell Distribution Width 12.9 % (11.5-14.5); Segmented Neutrophils % 62.8 %
[2017-12-13 12:44] LABS: INR 1.2; Prothrombin Time 13.2 Seconds (9.4-12.1)
[2017-12-13] MEDS ORDERED: *HR* Labetalol 100 MG/20 ML MDV IVP ONE (12:45)
[2017-12-13] MEDS ORDERED: Ondansetron 4 MG/2 ML VIAL IVP ONE (12:45)
[2017-12-13] MEDS ORDERED: 0.9 % Sodium Chloride 1,000 ML IVC ONE ×2 (12:47→12:50)
[2017-12-13 12:50] LABS: Alanine Aminotransferase 11 Units/L (7-52); Albumin 4.3 g/dL (3.5-5.7); Albumin/Globulin Ratio 1.7 (1.1-2.2); Alkaline Phosphatase 71 Units/L (34-104); Aspartate Amino Transferase 15 Units/L (13-39); BUN/Creatinine Ratio 17 (6-26); Bilirubin,Total 1.1 mg/dL (0.3-1.0); Blood Urea Nitrogen 20 mg/dL (8-23); Calcium 9.3 mg/dL (8.6-10.3); Carbon Dioxide 19 mEq/L (23-29); Chloride 102 mEq/L (98-107); Creatine Kinase 83 Units/L (30-223); Globulin 2.6 g/dL (2.4-3.5); Glucose 129 mg/dL (70-105); Magnesium 1.5 mg/dL (1.6-2.6); Osmolality,Calculated 298 (280-300); Sodium 142 mEq/L (136-145); Total Protein 6.9 g/dL (6.4-8.9); Troponin I < 0.03 ng/mL (< 0.04); eGFR For Non-African Americans > 60 (> 60)
[2017-12-13] MEDS ORDERED: niCARdipine 40 MG/200 ML MLS IVC SCH ×2 (13:00→13:17)
[2017-12-13 13:08] LABS: Bilirubin,Urine Negative (Negative); Blood,Urine Negative (Negative); Clarity,Urine Clear (Clear); Color,Urine Yellow (Yellow); Glucose,Urine (UA) Normal (Normal); Ketones,Urine Trace mg/dL (Negative); Leukocyte Esterase,Urine Negative (Negative); Nitrite,Urine Negative (Negative); Protein,Urine 100 mg/dL (Neg-Trace); Specific Gravity,Urine 1.024 (1.010-1.025); Urobilinogen,Urine Normal (Normal)
[2017-12-13 13:11] LABS: Bacteria,Urine None Seen per hpf (None-Few); Hyaline Casts,Urine None Seen per lpf (None-Few); Squamous Epithelial Cell,Urine Many per lpf (None-Few); WBC,Urine 0-3 per hpf (0-3)
[2017-12-13] MEDS ORDERED: Potassium Chloride Elixir 20 MEQ/15 ML UDC PO ONE (13:24)
[2017-12-13] MEDS ORDERED: 0.9 % Sodium Chloride 250 ML ONE (14:45)
[2017-12-13] MEDS ORDERED: Gadolinium Contrast Agent (WT Based) IV PRN (15:04)
[2017-12-13] MEDS ORDERED: Naloxone 0.4 MG/ML INJ IVP PRN (15:09)
[2017-12-13] MEDS ORDERED: Acetaminophen 325 MG TABLET PO PRN (15:09)
[2017-12-13] MEDS ORDERED: *HR* LORazepam 2 MG/ML VIAL IVP PRN (15:13)
[2017-12-13] MEDS ORDERED: 0.9 % Sodium Chloride 1,000 ML IVC SCH ×2 (15:15→15:55)
--- NOTE | 2017-12-13 15:32 | Internal Med History&Physical ---
Date of Encounter: 12/13/17 Time of Encounter: 14:30 Internal Medicine - H&P: HPI Chief complaint: Seizure Admitted From: Home Plans for Post Hospital Care: Home History of present illness: Mr. Ragland is a 82 year old male sent to ER by EMS for fall and seizure like activity. Past medical history is significant for hypertension, left kidney cancer, colon cancer, chronic back pain. Patient is watching something outside and suddenly feel dizziness, mild headache , nausea, and fell. Patient hit his forehead which was witnessed up by bystander. Patient try to get up by himself but has whole-body shaking. EMS was called. When EMS arrived, they witnessed seizure-like activity last about 1 minute. Patient cannot remember his shaking and that he was transported to emergency room. Patient shows confusing when he arrived in ER. No tongue bite , no urinary/fecal incontinence. Pt's mental status improved quickly and when I see him in ER, he is AAO x3 at his baseline. Pt denies recent sickness, fever, sore throat, runny nose, cough, abd pain, diarrhea, urination discomfort, or any open wound. In ER, his fist lactate is over 10 but quickly get down to 2.7. BP is high to arround 200, get down to 150s when I saw him, after labetalol iv. Pt was admitted for further management. Past Med Surg Social Fam HX - Past Medical History Medical history: other Additional medical history: unable to assess - Past Surgical History Additional surgical history: unable to assess - Social History Smoking Status: Unknown if ever smoked - Family History Mother History Unknown: Yes Internal Medicine - H&P: Meds Amlodipine Besylate 2.5 mg PO DAILY 12/13/17 [History] Aspirin [Adult Aspirin] 81 mg PO DAILY 12/13/17 [History] Atorvastatin [Lipitor] 40 mg PO HS 12/13/17 [History] Finasteride [Proscar] 5 mg PO DAILY 12/13/17 [History] Fludrocortisone Acetate [Florinef] 0.2 mg PO QAM 12/13/17 [History] Omeprazole [PriLOSEC] 20 mg PO DAILY 12/13/17 [History] Sertraline [Zoloft] 100 mg PO DAILY 12/13/17 [History] 3 Allergy/AdvReac Type Severity Reaction Status Date / Time No Known Allergies Allergy Verified 12/13/17 12:58 All Systems PM: A 10-system review of systems was performed and is negative for pertinent findings except as documented above in the HPI. - Constitutional Vitals: Temp Pulse Resp BP Pulse Ox 97.9 F 96 24 152/81 97 12/13/17 12:07 12/13/17 14:52 12/13/17 14:52 12/13/17 14:52 12/13/17 14:52 General appearance: Present: A&O X 3, no acute distress, answers questions appropriately Exam: in NAD - Head Head exam: Present: atraumatic, normocephalic - Eye Eye exam: Present: PERRL, conjuntiva pink, sclera anicteric Pupils: Present: PERRL - Neck Neck exam general surgery: Present: supple, trachea midline. Absent: lymphadenopathy - Respiratory Respiratory exam: Present: CTAB. Absent: accessory muscle use, rales, rhonchi, wheezes - Cardiovascular Cardiovascular exam: Present: RRR, +S1, +S2. Absent: diastolic murmur, gallop, rubs, systolic murmur - GI/Abdominal GI/Abdominal exam: Present: normal bowel sounds, soft, no peritoneal signs. Absent: distended, tenderness - Extremities Exam Extremities exam: Present: warm, radial pulses palpable and symmetrical. Absent : calf tenderness, cyanotic, pedal edema - Neurological Exam Neurological exam: Present: CN II-XII intact, oriented X3, no focal deficits. Absent: pronater drift, facial droop, speech deficit - Skin Skin exam: Present: dry, intact Internal Med - H&P Results - Labs CBC & Chem 7: 12/13/17 12:23 12/13/17 12:23 Labs: Short CBC 12/13/17 Range/Units 12:23 WBC 11.0 (4.3-11.1) K/mcL Hgb 14.2 (12.9-16.9) g/dL Hct 43.4 (37.5-50.1) % Plt Count 150 (140-400) K/mcL Neutrophils # 6.9 (1.6-8.9) K/mcL BMP 12/13/17 12:23 Sodium 142 Potassium 3.0 L Chloride 102 Carbon Dioxide 19 L BUN 20 Creatinine 1.15 Glucose 129 H Calcium 9.3 Cardiac Enzymes 12/13/17 Range/Units 12:23 Troponin I < 0.03 (< 0.04) ng/mL Liver Function 12/13/17 Range/Units 12:23 Total Bilirubin 1.1 H (0.3-1.0) mg/dL AST 15 (13-39) Units/L ALT 11 (7-52) Units/L Alkaline Phosphatase 71 (34-104) Units/L Albumin 4.3 (3.5-5.7) g/dL Urine 12/13/17 Range/Units 13:00 Urine Color Yellow (Yellow) Urine Clarity Clear (Clear) Urine pH 6.0 (5.0-8.0) pH Units Ur Specific [place] 1.024 (1.010-1.025) Urine Protein 100 H (Neg-Trace) mg/dL Urine Glucose (UA) Normal (Normal) mg/dL - Impressions ITS Impressions Cervical Spine CT 12/13/17 12:23 IMPRESSION: No acute abnormality of the cervical spine. D/ / Diana Arias MD / Diana Arias MD Interpreting Provider: Diana Arias MD Head CT 12/13/17 12:23 IMPRESSION: 1. Partially limited study due to patient motion despite multiple repeated attempts at scanning. Within this limitation, no definite acute intracranial abnormality is identified. 2. Mild age-appropriate diffuse atrophy with minimal chronic small vessel ischemic changes. D/ / Tejas Velazco MD / Tejas Velazco MD Interpreting Provider: Tejas Velazco MD Chest X-Ray 12/13/17 12:24 IMPRESSION: Findings suggest congestive heart failure D/ / Tejas Francisco MD / Tejas Francisco MD Interpreting Provider: Tejas Francisco MD - Assessment and plan (1) DVT prophylaxis Current Visit: Yes Status: Acute Assessment and plan: EPCDs (2) Seizure-like activity Current Visit: Yes Status: Acute Assessment and plan: Pt has seizure like shaking, with post-ictal confusion, elevated lactate, suspect seizure. Pt has no hx of seizure but has colon/renal cancer. - Place pt on cardiac monitoring to r/o possible arrhythmia - MRI - Echo/duplex carotid b/l - Pt report hx of orthostatic hypotension, will obtain orthostatic vitals. - Fall precaution/seizure precaution/aspiration precaution. - D/W Neuro Dr Zelaya, as pt has no further seizure in ER, will hold seizure med now, if pt has seizure again, consider keppra 500mg iv BID, place ativan 2mg iv PRN for seizure activity, EEG in AM, f/u MRI result. (3) Hypertension Current Visit: Yes Status: Acute Assessment and plan: BP is at his baseline now, cont home meds, hydralazine iv prn. Qualifiers: Hypertension type: essential hypertension Qualified Code(s): I10 - Essential (primary) hypertension (4) Altered mental status Current Visit: Yes Status: Acute Assessment and plan: Most likely postictal confusion, get back to his baseline mental status now. Qualifiers: Altered mental status type: unspecified Qualified Code(s): R41.82 - Altered mental status, unspecified (5) Lactic acidosis Current Visit: Yes Status: Acute Assessment and plan: Pt has no signs of infection. Lactate get down, possibly due to seizure activity. Cont IVF and track lactate in 6 hours. - Time Spent With Patient Total time spent is greater than 50% in coordination of care (as documented) at patient's floor/unit and/or counseling patient: 30 min 25 - 35 minutes
[2017-12-13] MEDS ORDERED: amLODIPine 5 MG TABLET PO ONE (17:32)
[2017-12-14 04:39] LABS: Basophils % 0.3 %; Eosinophils # 0.2 K/mcL (0.0-0.6); Eosinophils % 2.2 %; Immature Granulocytes % 0.3 % (0-4); Lymphocytes # 2.1 K/mcL (0.6-4.6); Lymphocytes % 26.8 %; Mean Corpuscular HGB Conc 33.7 g/dL (31.6-35.5); Mean Corpuscular Hemoglobin 30.1 pg (28.0-33.3); Mean Corpuscular Volume 89.3 fL (83.0-100.0); Monocytes # 0.6 K/mcL (0.0-1.3); Monocytes % 8.1 %; Neutrophils # 4.8 K/mcL (1.6-8.9); Platelet Count 113 K/mcL (140-400); Red Blood Count 3.92 M/mcL (4.19-5.50); Red Cell Distribution Width 13.2 % (11.5-14.5); Segmented Neutrophils % 62.3 %
[2017-12-14 04:43] LABS: Hemoglobin 11.8 g/dL (12.9-16.9)
[2017-12-14 05:00] LABS: BUN/Creatinine Ratio 17 (6-26); Blood Urea Nitrogen 13 mg/dL (8-23); Calcium 8.4 mg/dL (8.6-10.3); Carbon Dioxide 28 mEq/L (23-29); Chloride 107 mEq/L (98-107); Chol/HDL Ratio 3.3 (0-4.9); Cholesterol 117 mg/dL (< 200); Glucose 105 mg/dL (70-105); HDL Cholesterol 35 mg/dL (40-59); LDL Cholesterol,Calculated 62 mg/dL (0-99); Magnesium 1.8 mg/dL (1.6-2.6); Osmolality,Calculated 292 (280-300); Sodium 141 mEq/L (136-145); Triglycerides 99 mg/dL (< 150); eGFR For Non-African Americans > 60 (> 60)
[2017-12-14] MEDS: amLODIPine 5 MG TABLET PO SCH (07:51)
[2017-12-14] MEDS: Finasteride 5 MG TABLET PO SCH (07:51)
[2017-12-14] MEDS: Aspirin Enteric Coated 81 MG Tablet PO SCH (07:51)
[2017-12-14] MEDS: Potassium Chloride Elixir 20 MEQ/15 ML UDC PO SCH ×2 (07:51→17:22)
[2017-12-14] MEDS ORDERED: amLODIPine 5 MG TABLET PO SCH ×2 (09:00)
--- NOTE | 2017-12-14 11:44 | Internal Med Progress Note ---
Hospitalist Progress Note - Encounter Date of Encounter: 12/14/17 Time of Encounter: 09:00 - Subjective Interval History: Pt has no further seizure, denies dizziness, lightheaded, nausea, or chest pain. - Exam Vitals: Temp Pulse Resp BP Pulse Ox 98.4 F 75 18 155/77 92 12/14/17 07:13 12/14/17 08:37 12/14/17 07:13 12/14/17 08:37 12/14/17 08:37 Exam: Pi sitting in chair, comfortable, in NAD HEENT: NC/AT, PERRL Neck: Supple, no JVD Heart: S1S2, RRR Lungs: CTA b/l Abd: Soft, NT Ext: No pedal edema Neuro: AAO x3, no focal deficit. - Assessment and Plan (1) DVT prophylaxis Current Visit: Yes Status: Acute Assessment and Plan: EPCDs (2) Seizure-like activity Current Visit: Yes Status: Acute Assessment and Plan: No further seizure or syncope. - Cont cardiac monitoring - MRI shows no infarct or metastesis - Echo/duplex carotid b/l pending - Pt report hx of orthostatic hypotension, will obtain orthostatic vitals. - Fall precaution/seizure precaution/aspiration precaution. - Neuro consult. (3) Hypertension Current Visit: Yes Status: Acute Assessment and Plan: BP is high to 180s this morning, increase amlodipine to 10mg po daily. However, pt's report he has orthostatic hypotension, will closely monitor BP changes. Cont fall precaution. (4) Altered mental status Current Visit: Yes Status: Acute Assessment and Plan: Most likely postictal confusion, get back to his baseline mental status now. (5) Lactic acidosis Current Visit: Yes Status: Acute Assessment and Plan: Resolved. Most likely due to seizure like activity. IVF discontinued. DVT Prophylaxis: EPCDs - Time Spent with Patient Total time spent is greater than 50% in coordination of care (as documented) at patient's floor/unit and/or counseling patient: 30min 25 - 35 minutes Plan of Care Discussed with: patient Internal Medicine: Result - Labs CBC & Chem 7: 12/14/17 04:25 12/14/17 04:25 Labs: Short CBC 12/14/17 Range/Units 04:25 WBC 7.8 (4.3-11.1) K/mcL Hgb 11.8 L D (12.9-16.9) g/dL Hct 35.0 L (37.5-50.1) % Plt Count 113 L (140-400) K/mcL Neutrophils # 4.8 (1.6-8.9) K/mcL BMP 12/14/17 04:25 Sodium 141 Potassium 3.0 L Chloride 107 Carbon Dioxide 28 BUN 13 Creatinine 0.76 Glucose 105 Calcium 8.4 L - ABG Interpretation ABG results: PT/INR, D-dimer PT 13.2 Seconds (9.4-12.1) H 12/13/17 12:23 Consult Discharge Plan - Plan Referrals: Willard Elam MD [Primary Care Provider] - (3) Hypertension Qualifiers: Hypertension type: essential hypertension Qualified Code(s): I10 - Essential (primary) hypertension (4) Altered mental status Qualifiers: Altered mental status type: unspecified Qualified Code(s): R41.82 - Altered mental status, unspecified
--- NOTE | 2017-12-14 12:00 | Neurology - Consult Note ---
Date of Encounter: 12/14/17 Time of Encounter: 11:56 Assessment and Plan (1) Seizure-like activity Current Visit: Yes Status: Acute This patient who was admitted with the witnessed jerking shaking seizure-like of activity now back to his baseline. The description sound like typical seizures with t without much postictal state so far no obvious reason for the seizures Especially no sign of any clinical meningitis neither any sign off for his stroke or any metastatic disease on MRI of the brain. Considering this is the first event though it was unprovoked I would recommend workup including an EEG but would not recommend starting on any anti-seizure medication as it is the first event perhaps he may not have any further events but if he find any abnormality on EEG in that case we may need to start him on some antiepileptics. At the same time suggested that we did not continue monitor his blood pressure blood sugar as well as check for other metabolic or any infectious etiologies that may have triggered this event. He should remain on seizure precautions and continued to have monitoring especially for any cardiac arrhythmias. History of Present Illness HPI: Mr. Ragland is a 82 year old male admitted with seizure like activity. Past medical history is significant for hypertension, left kidney cancer, colon cancer, chronic back pain. accoding to pt and he was ou side at home and suddenly feel dizziness, mild headache, nausea, and fell. Patient hit his forehead which was witnessed up by bystander. Patient try to get up by himself but has whole-body shaking. EMS was called. When EMS arrived, they witnessed seizure-like activity last about 1 minute. Patient cannot remember his shaking and that he was transported to emergency room. Patient noted to be confused in the ER. denies any tongue bite, no urinary/fecal incontinence. Pt's mental status improved quickly and back to baseline, Pt denies recent sickness, fever, sore throat, runny nose, cough, abd pain, diarrhea, urination discomfort, or any open wound. In ER, his BP was around 200, Pt was admitted for further management Now he feels back to normal he denies any history of seizures on a stroke he did have a remote history of colon cancer and recently had a kidney cancer CT scan of the head is negative he just had an MRI that shows some chronic ischemic changes but no acute bleed stroke or any evidence of metastatic disease reported Past Med Surg Social Fam HX - Past Medical History Medical history: other Additional medical history: unable to assess Psychiatric history: depression - Past Surgical History Additional surgical history: enlarged prostate; back surgery - Social History Smoking Status: Unknown if ever smoked Smokeless Tobacco Status: No Alcohol use: rarely Drug use: none - Family History Mother History Unknown: Yes Name: Kate Living Status: Age at : 102 Cause of : old age Hx Family Cardiac Disorders: No Hx Family Respiratory Disorders: No Hx Family Cancer: No Hx Family GI Disorders: No Hx Family Genitourinary Disorders: No Hx Family Endocrine Disorder: Yes (hypothroidism) Hx Family Musculoskeletal Disorders: No Hx Family Neuromuscular Disorders: No Hx Family Neurologic Disorders: No Hx Family HEENT Disorders: No Hx Family Autoimmune Disorders: No Hx Family Reproductive Disorders: No Hx Family Psychosocial Disorders: No Hx Family Medical Disorders: No Father Name: Sabino Living Status: Age at : 42 Cause of : pneumonia Hx Family Cardiac Disorders: No Hx Family Respiratory Disorders: Yes Hx Family Cancer: No Hx Family GI Disorders: Yes (ulcers) Hx Family Genitourinary Disorders: No Hx Family Endocrine Disorder: No Hx Family Musculoskeletal Disorders: No Hx Family Neuromuscular Disorders: No Hx Family Neurologic Disorders: No Hx Family HEENT Disorders: No Hx Family Autoimmune Disorders: No Hx Family Reproductive Disorders: No Hx Family Psychosocial Disorders: No Hx Family Medical Disorders: No Medications and Allergies Amlodipine Besylate 2.5 mg PO DAILY 12/13/17 [History] Aspirin [Adult Aspirin] 81 mg PO DAILY 12/13/17 [History] Atorvastatin [Lipitor] 40 mg PO HS 12/13/17 [History] Finasteride [Proscar] 5 mg PO DAILY 12/13/17 [History] Fludrocortisone Acetate [Florinef] 0.2 mg PO QAM 12/13/17 [History] Omeprazole [PriLOSEC] 20 mg PO DAILY 12/13/17 [History] Sertraline [Zoloft] 100 mg PO DAILY 12/13/17 [History] 3 Allergy/AdvReac Type Severity Reaction Status Date / Time No Known Allergies Allergy Verified 12/13/17 12:58 All Systems: The remainder of the systems were reviewed and are negative Physical Examination - Vital Signs Vital Signs: Initial Vital Signs Temp Pulse Resp BP Pulse Ox 97.9 F 93 26 0/0 91 12/13/17 12:07 12/13/17 12:07 12/13/17 12:07 12/13/17 12:07 12/13/17 12:07 - Exam Exam: GENERAL: Comfortable in no acute distress HEENT: Normal LUNGS: CTA HEART: RRR, S1 S2 Audible, no murmur EXTREMITIES: No Pedal edema. DETAILED NEUROLOGICAL EXAMINATION: MENTAL STATUS: Oriented to person, place, date and situation. Memory: knows the President, Aware of recent events Recent Memory Intact Cranial Nerve Examination: CN - II: Visual Acuity, Field of Vision Normal, Fundus examination: No disk edema, Pupils- size shape reaction to light and accommodation: All normal. CN III, IV, : External ocular movements were intact, Pupils were reactive, Nodrooping of the eyelids CN V: Sensation over the face to light touch and pinprick all normal. Corneal reflexes not tested, jaw jerk normal. CN VII: No facial asymmetry, no flattening of nasolabial folds, no difficulty in closing the eyes, no loss of forehead wrinkles, no difficulty in eye-closure, frowning raising eyebrows. CNVIII: No significant hearing loss CN IX, X: Uvula centralized not deviated, Gag reflex: Not tested CN X1: Sternocleidomastoid, trapezius, normal or evidence of any weakness. CN X11: No Dysarthria, no wasting or fibrilation f tongue muscles, no deviation, tongue muscle strength normal. Motor examination: No hypertrophy, tone was normal, power grade 0-5 Upper limbs Proximal- No difficulty in lifting the arms above the head. Distal- No weakness in distal muscles On formal testing 5/5 all over Lower limbs On formal testing 5/5 all over Coordination: [id number] normal. Target pursuit normal finger tapping normal, Rapid alternating moment of wrist normal Sensory system: Superficial sensations- Touch normal. Pain- Pinprick, Temperature all normal, Deep sensation normal, Joint position sense normal. Cortical sensation, Tactile discrimination, localization and extinction all normal. Deep tendon reflexes. Symmetrical bilateral, No evidence of Babinski. No sign of meningeal irritation Gait Examination: Deferred Results - Laboratory Findings CBC and BMP: 12/14/17 04:25 12/14/17 04:25 Abnormal lab findings: Abnormal lab results RBC 3.92 M/mcL (4.19-5.50) L 12/14/17 04:25 Hgb 11.8 g/dL (12.9-16.9) L D 12/14/17 04:25 Hct 35.0 % (37.5-50.1) L 12/14/17 04:25 Plt Count 113 K/mcL (140-400) L 12/14/17 04:25 PT 13.2 Seconds (9.4-12.1) H 12/13/17 12:23 Potassium 3.0 mEq/L (3.5-5.1) L 12/14/17 04:25 POC Glucose 126 mg/dL (70-99) H 12/13/17 12:11 Calcium 8.4 mg/dL (8.6-10.3) L 12/14/17 04:25 Total Bilirubin 1.1 mg/dL (0.3-1.0) H 12/13/17 12:23 HDL Cholesterol 35 mg/dL (40-59) L 12/14/17 04:25 Urine Protein 100 mg/dL (Neg-Trace) H 12/13/17 13:00 Urine Ketones Trace mg/dL (Negative) H 12/13/17 13:00 Urine Microscopic RBC 5-15 per hpf (0-3) H 12/13/17 13:00 Ur Squamous Epith Cells Many per lpf (None-Few) H 12/13/17 13:00 - Diagnostic Findings Additional findings: MRI of the brain negative for any acute stroke or any metastatic disease Consult Discharge Plan - Plan Referrals: Willard Elam MD [Primary Care Provider] -
[2017-12-15 08:18] LABS: Basophils % 0.3 %; Eosinophils # 0.3 K/mcL (0.0-0.6); Eosinophils % 4.6 %; Hematocrit 39.4 % (37.5-50.1); Hemoglobin 13.3 g/dL (12.9-16.9); Immature Granulocytes % 0.3 % (0-4); Lymphocytes # 1.7 K/mcL (0.6-4.6); Mean Corpuscular HGB Conc 33.8 g/dL (31.6-35.5); Mean Corpuscular Hemoglobin 30.3 pg (28.0-33.3); Mean Corpuscular Volume 89.7 fL (83.0-100.0); Mean Platelet Volume 10.2 fL (9.4-12.4); Monocytes # 0.6 K/mcL (0.0-1.3); Monocytes % 8.6 %; Neutrophils # 4.3 K/mcL (1.6-8.9); Platelet Count 121 K/mcL (140-400); Red Blood Count 4.39 M/mcL (4.19-5.50); Red Cell Distribution Width 13.2 % (11.5-14.5); Segmented Neutrophils % 61.2 %
[2017-12-15 08:40] LABS: BUN/Creatinine Ratio 15 (6-26); Blood Urea Nitrogen 10 mg/dL (8-23); Carbon Dioxide 28 mEq/L (23-29); Chloride 107 mEq/L (98-107); Glucose 110 mg/dL (70-105); Magnesium 1.7 mg/dL (1.6-2.6); Osmolality,Calculated 294 (280-300); Potassium 3.3 mEq/L (3.5-5.1); Sodium 142 mEq/L (136-145); eGFR For Non-African Americans > 60 (> 60)
[2017-12-15] MEDS: amLODIPine 5 MG TABLET PO SCH (09:09)
[2017-12-15] MEDS: Finasteride 5 MG TABLET PO SCH (09:10)
[2017-12-15] MEDS: Aspirin Enteric Coated 81 MG Tablet PO SCH (09:10)
--- NOTE | 2017-12-15 10:42 | Neurology Progress Note ---
Date of Encounter: 12/15/17 Time of Encounter: 08:20 Assessment and Plan (1) Seizure-like activity Current Visit: Yes Status: Acute This patient who was admitted with the witnessed jerking shaking seizure-like of activity now back to his baseline. The description sound like typical seizures with t without much postictal state so far no obvious reason for the seizures Especially no sign of any clinical meningitis neither any sign off for his stroke or any metastatic disease on MRI of the brain. Considering this is the first event though it was unprovoked I would recommend workup including an EEG but would not recommend starting on any anti-seizure medication as it is the first event perhaps he may not have any further events but if he find any abnormality on EEG in that case we may need to start him on some antiepileptics. At the same time suggested that we did not continue monitor his blood pressure blood sugar as well as check for other metabolic or any infectious etiologies that may have triggered this event. He should remain on seizure precautions and continued to have monitoring especially for any cardiac arrhythmias. Mri negative, we will review the EEG which is scheduled for today again would not recommend any antiepileptic medication at this time other treatment is as per primary care also suggest to increase ambulation with physical therapy Subjective Interval history: Patient doing well did not have any doing well did not have any further episodes of jerking or shaking no focal neurological deficit on exam Objective - Constitutional Vitals: Temp Pulse Resp BP Pulse Ox 98.1 F 73 18 170/94 94 12/15/17 06:59 12/15/17 06:59 12/15/17 06:59 12/15/17 06:59 12/15/17 06:59 Results - Laboratory Findings CBC and BMP: 12/15/17 07:51 12/15/17 07:51 Abnormal lab findings: Abnormal lab results Plt Count 121 K/mcL (140-400) L 12/15/17 07:51 PT 13.2 Seconds (9.4-12.1) H 12/13/17 12:23 Potassium 3.3 mEq/L (3.5-5.1) L 12/15/17 07:51 Creatinine 0.68 mg/dL (0.70-1.30) L 12/15/17 07:51 Glucose 110 mg/dL (70-105) H 12/15/17 07:51 POC Glucose 126 mg/dL (70-99) H 12/13/17 12:11 Total Bilirubin 1.1 mg/dL (0.3-1.0) H 12/13/17 12:23 HDL Cholesterol 35 mg/dL (40-59) L 12/14/17 04:25 Urine Protein 100 mg/dL (Neg-Trace) H 12/13/17 13:00 Urine Ketones Trace mg/dL (Negative) H 12/13/17 13:00 Urine Microscopic RBC 5-15 per hpf (0-3) H 12/13/17 13:00 Ur Squamous Epith Cells Many per lpf (None-Few) H 12/13/17 13:00 Consult Discharge Plan - Plan Referrals: Willard Elam MD [Primary Care Provider] - (Per Dr. Pozo Office patient has to make his own follow up appointment)
--- NOTE | 2017-12-15 10:58 | EEG/EMG/Oth Biometrics Report ---
EEG Procedure Report EEG Procedure: Routine EEG Procedure Note: Patient who was admitted with seizure-like of activity no history of seizures This is a routine 21 channel digital EEG performed utilizing 10- 20 international electrode placement system. FINDINGS: Patient has a predominant waking background frequency that is average voltage 8 to 10 Hertz alpha activity in the posterior region, normal amplitude symmetrical over the both hemispheres reactive to eyes opening and closing record continued to show alpha activity intermixed with some theta off and on, no abnormal activity recorded, predominantly no evidence of any spike wave discharges or any lateralizing abnormalities, Photic stimulation and did not produce any convulsive response. Intermittent EMG artifacts were noted. Stage II sleep was not achieved. Impression: Normal awake drowsy low amplitude electroencephalogram. No epileptiform discharges or any other paroxysmal activities noted. ( Please note that normal EEG does not exclude the diagnosis of seizures or epilepsy, clinical correlation is suggested)
[2017-12-15 11:37] VITALS: BP 191/95
--- NOTE | 2017-12-15 13:55 | Discharge Summary ---
<Jeanne Mooney Adina - Last Filed: 12/15/17 13:53> - NOTES TO OUTPATIENT PROVIDER Notes to Outpatient Provider: Follow up with PCP within 1 week for HTN. Follow up with Neurology in 1 month. Return to the ED if symtoms return or worsen. Orders not resulted at time of discharge: Pending orders 12/16/17 04:00 BMP [Basic Metabolic Panel] AM 0400 Complete Blood Count [HEME] AM 0400 Magnesium AM 0400 Date of Encounter: 12/15/17 Time of Encounter: 10:17 - Discharge Diagnosis (1) Orthostatic hypotension Priority: Secondary Status: Chronic (2) Hypertension Priority: Secondary Status: Chronic Qualifiers: Hypertension type: essential hypertension Qualified Code(s): I10 - Essential (primary) hypertension (3) Seizure-like activity Priority: Primary Status: Acute (4) Altered mental status Priority: Primary Status: Resolved Qualifiers: Altered mental status type: unspecified Qualified Code(s): R41.82 - Altered mental status, unspecified (5) Lactic acidosis Priority: Secondary Status: Resolved Hospital course: Mr. Ragland is a 82 year old male with a history of hypertension, left kidney cancer, colon cancer, and chronic back pain who presented to the ED after a suspected witnessed seizure at home. He reported that he felt dizzy, nauseous, and had a mild headache prior to falling to the ground where he hit his head. While trying to get up from the ground, his entire body started shaking for what was estimated to be about 1 minute per bystander report. He was initially confused and unable to recall the events. His vitals were significant for a BP of 194/85 and a lactic acid of 10. He recieved IVF and his lactic acid came down to 2.7. Head CT, Spinal CT, and Brain MRI were all negative for acute findings. Overnight he returned to baseline mentation. CXR was suggestive of CHF, ECHO showed an EF 65% with moderate pulmonary hypertension and mild-moderate aortic and tricuspid regurgitation. He was confirmed upon orthostatic BPs to have orthostatic hypotension, which likely contributed to his fall. Neurology was consulted due to suspected seizure. MRI and EEG were both negative. Neuro recommended not starting seizure medications at this time as the patient has no history of seizure and this was his first episode. The patient is medically stable for discharge and will follow up with neurology within 1 month and recommend PCP follow up within 1 week for management of hypertension. Discharge discussed with: patient - Time Spent with Patient Total time spent providing and/or coordinating discharge services: - Discharge Medications Home Medications: Sertraline [Zoloft] 100 mg PO DAILY 08/04/17 [History] Finasteride [Propecia] 2 tab PO DAILY 10/02/17 [History] Fludrocortisone Acetate [Florinef] 0.1 mg PO BID 10/02/17 [History] amLODIPine [Norvasc] 2.5 mg PO BID 10/02/17 [History] Aspirin [Adult Aspirin] 81 mg PO DAILY 12/13/17 [History] Atorvastatin [Lipitor] 40 mg PO HS 12/13/17 [History] Finasteride [Proscar] 5 mg PO DAILY 12/13/17 [History] Fludrocortisone Acetate [Florinef] 0.2 mg PO QAM 12/13/17 [History] Omeprazole [PriLOSEC] 20 mg PO DAILY 12/13/17 [History] Sertraline [Zoloft] 100 mg PO DAILY 12/13/17 [History] Allergies/Adverse Reactions: 3 Allergy/AdvReac Type Severity Reaction Status Date / Time No Known Allergies Allergy Verified 12/15/17 08:23 Date of admission: 12/13/17 15:19 Primary care physician: Willard Elam MD Consults: 12/13/17 17:31 Consult to Pastoral Services [CONS] Routine Comment: prayer if available Consult to [employer] [CONS] Routine Reason for SW Consult: Discharge planning 12/15/17 10:00 PT [Consult to Physical Therapy] [CONS] Routine Comment: Evaluate, develop and implement POC Reason for Consult: weakness Does patient have active BEDREST order?: No Is patient medically & hemodynamically stable?: Yes Patient assessed for mobility or mobilized this visit?: Yes 12/15/17 11:19 Consult to Interpret Exam [CONS] Routine Consulting Provider: Michelle Choi I Consult to Interpret Exam: Interpret EEG - Constitutional Vitals: Temp Pulse Resp BP Pulse Ox 97.6 F 75 18 191/95 94 12/15/17 11:28 12/15/17 11:28 12/15/17 11:28 12/15/17 11:28 12/15/17 11:28 General appearance: Present: A&O X 3, no acute distress, answers questions appropriately Exam: Gen: NAD HEENT: NC/AT, EOMI Neck: Supple, no JVD Heart: S1S2, RRR, no murmurs Lungs: CTAB, no wheezing Abd: Soft, NT Ext: No pedal edema Neuro: AAO x3, no focal deficit. - Patient Status Condition: Fair Overall status at discharge: patient is progressing back to baseline - Discharge Instructions Follow Up With: Willard Elam MD [Primary Care Provider] - (Per Dr. Pozo Office patient has to make his own follow up appointment) - Diet and Activity Activity: increase activity as tolerated Diet: regular diet <Mele Hong - Last Filed: 12/15/17 15:05> Orders not resulted at time of discharge: Pending orders 12/16/17 04:00 BMP [Basic Metabolic Panel] AM 0400 Complete Blood Count [HEME] AM 0400 Magnesium AM 0400 Date of Encounter: 12/15/17 - Discharge Diagnosis (1) Seizure-like activity Status: Acute (2) Hypertension Status: Acute Qualifiers: Hypertension type: essential hypertension Qualified Code(s): I10 - Essential (primary) hypertension (3) Altered mental status Status: Resolved Qualifiers: Altered mental status type: unspecified Qualified Code(s): R41.82 - Altered mental status, unspecified (4) Lactic acidosis Status: Resolved (5) DVT prophylaxis Status: Acute Hospital course: Mr. Ragland is a 82 year old male - Time Spent with Patient Total time spent providing and/or coordinating discharge services: Date of admission: 12/13/17 15:19 Primary care physician: Willard Elam MD Consults: 12/13/17 17:31 Consult to Pastoral Services [CONS] Routine Comment: prayer if available Consult to [employer] [CONS] Routine Reason for SW Consult: Discharge planning 12/15/17 10:00 PT [Consult to Physical Therapy] [CONS] Routine Comment: Evaluate, develop and implement POC Reason for Consult: weakness Does patient have active BEDREST order?: No Is patient medically & hemodynamically stable?: Yes Patient assessed for mobility or mobilized this visit?: Yes 12/15/17 11:19 Consult to Interpret Exam [CONS] Routine Consulting Provider: Jimbo,Martinez I Consult to Interpret Exam: Interpret EEG - Constitutional Vitals: Temp Pulse Resp BP Pulse Ox 97.6 F 75 18 191/95 94 12/15/17 11:28 12/15/17 11:28 12/15/17 11:28 12/15/17 11:28 12/15/17 11:28 - Attending Attestation I have seen and examined this pt independently. I have discussed with resident physician Dr Conteh regarding the management plan. Agree with the documentation. Pt has orthostatic hypotension, he was educated to avoid dehydration, slowly get up or sit up, and monitor BP at home.
--- NOTE | 2017-12-15 15:15 | Electrocardiograph Report ---
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
== END 2017-12-15 16:33 | disposition home or self-care (01) ==
LOC: EMEROOARM 12:07 → 2NNU 15:19 → INTOOBSV 15:19 → MERGE 15:19 → 2NNU 16:44
PROVIDERS: ADMIT Internal Medicine; ATTEND Internal Medicine

== ENCOUNTER 2019-09-15 16:18 | Observation (INO) ==
[2019-09-15] MEDS ORDERED: Isovue-370 500 ML BOTTLE IVP ONE (16:52)
[2019-09-15 17:03] LABS: Hematocrit 40.2 % (37.5-50.1); Hemoglobin 13.1 g/dL (12.9-16.9); Mean Corpuscular HGB Conc 32.6 g/dL (31.6-35.5); Mean Platelet Volume 10.8 fL (9.4-12.4); Platelet Count 141 K/mcL (140-400); Red Blood Count 4.23 M/mcL (4.19-5.50); Red Cell Distribution Width 12.5 % (11.5-14.5); White Blood Count 9.5 K/mcL (4.3-11.1)
[2019-09-15 17:22] LABS: INR 1.1
[2019-09-15 17:25] LABS: Activated Partial Thrombo Time 26.6 Seconds (26.0-36.0); BUN/Creatinine Ratio 18 (6-26); Blood Urea Nitrogen 23 mg/dL (8-23); Carbon Dioxide 28 mEq/L (23-29); Chloride 104 mEq/L (98-107); Creatine Kinase 51 Units/L (30-223); Ethanol < 10 mg/dL (Less than 10); Glucose 100 mg/dL (70-105); Osmolality,Calculated 294 (280-300); Potassium 3.9 mEq/L (3.5-5.1); Sodium 140 mEq/L (136-145); Troponin I 0.03 ng/mL (< 0.04); eGFR For African Americans > 60 (> 60); eGFR For Non-African Americans 52 (> 60)
[2019-09-15 17:49] LABS: Bilirubin,Urine Negative (Negative); Blood,Urine Negative (Negative); Clarity,Urine Clear (Clear); Color,Urine Light-Yellow (Yellow); Glucose,Urine (UA) Normal (Normal); Ketones,Urine Negative (Negative); Leukocyte Esterase,Urine Negative (Negative); Nitrite,Urine Negative (Negative); PH,Urine 6.5 pH Units (5.0-8.0); Protein,Urine 50 mg/dL (Neg-Trace); RBC,Urine 0-3 per hpf (0-3); Specific Gravity,Urine 1.014 (1.010-1.025); Urobilinogen,Urine Normal (Normal)
[2019-09-15] MEDS: niCARdipine 20 MG/200 ML MLS IVC SCH ×2 (19:25→23:56)
[2019-09-15] MEDS ORDERED: Acetaminophen 325 MG TABLET PO PRN (20:50)
[2019-09-15] MEDS ORDERED: Naloxone 0.4 MG/ML INJ IVP PRN (20:50)
[2019-09-15] MEDS ORDERED: *HR* Promethazine 25 MG/ML VIAL IVP PRN (20:50)
[2019-09-15] MEDS: amLODIPine 5 MG TABLET PO SCH (22:44)
[2019-09-15] MEDS: *HR* Heparin 5,000 UNIT/ML VIAL SQ SCH (22:44)
[2019-09-15] MEDS: levETIRAcetam 250 MG TABLET PO SCH (22:44)
[2019-09-16 01:35] LABS: Hematocrit 39.2 % (37.5-50.1); Hemoglobin 12.8 g/dL (12.9-16.9); Mean Corpuscular HGB Conc 32.7 g/dL (31.6-35.5); Mean Corpuscular Hemoglobin 30.7 pg (28.0-33.3); Mean Platelet Volume 11.3 fL (9.4-12.4); Platelet Count 143 K/mcL (140-400); Red Blood Count 4.17 M/mcL (4.19-5.50); Red Cell Distribution Width 12.3 % (11.5-14.5); White Blood Count 11.1 K/mcL (4.3-11.1)
[2019-09-16 01:37] LABS: INR 1.2; Prothrombin Time 13.1 Seconds (9.4-12.1)
[2019-09-16 01:52] LABS: BUN/Creatinine Ratio 20 (6-26); Blood Urea Nitrogen 24 mg/dL (8-23); Calcium 8.7 mg/dL (8.6-10.3); Carbon Dioxide 28 mEq/L (23-29); Chloride 106 mEq/L (98-107); Chol/HDL Ratio 3.3 (0-4.9); Cholesterol 127 mg/dL (< 200); Glucose 150 mg/dL (70-105); HDL Cholesterol 38 mg/dL (40-59); LDL Cholesterol,Calculated 62 mg/dL (< 100); Magnesium 1.7 mg/dL (1.6-2.6); Osmolality,Calculated 301 (280-300); Phosphorous 2.6 mg/dL (2.7-4.5); Potassium 3.2 mEq/L (3.5-5.1); Sodium 142 mEq/L (136-145); Triglycerides 133 mg/dL (< 150); eGFR For African Americans > 60 (> 60); eGFR For Non-African Americans 58 (> 60)
[2019-09-16] MEDS: *HR* Heparin 5,000 UNIT/ML VIAL SQ SCH ×3 (04:54→19:42)
[2019-09-16] MEDS: levETIRAcetam 250 MG TABLET PO SCH ×2 (07:54→19:42)
[2019-09-16] MEDS: amLODIPine 5 MG TABLET PO SCH ×2 (07:54→19:50)
[2019-09-16] MEDS: Finasteride 5 MG TABLET PO SCH (07:54)
[2019-09-16] MEDS: niCARdipine 20 MG/200 ML MLS IVC SCH (13:05)
[2019-09-17 02:35] LABS: BUN/Creatinine Ratio 21 (6-26); Blood Urea Nitrogen 21 mg/dL (8-23); Calcium 9.2 mg/dL (8.6-10.3); Carbon Dioxide 24 mEq/L (23-29); Chloride 106 mEq/L (98-107); Glucose 109 mg/dL (70-105); Osmolality,Calculated 290 (280-300); Potassium 3.4 mEq/L (3.5-5.1); Sodium 138 mEq/L (136-145); eGFR For African Americans > 60 (> 60); eGFR For Non-African Americans > 60 (> 60)
[2019-09-17 02:37] LABS: Hematocrit 39.8 % (37.5-50.1); Hemoglobin 13.4 g/dL (12.9-16.9); Mean Corpuscular HGB Conc 33.7 g/dL (31.6-35.5); Mean Corpuscular Hemoglobin 31.5 pg (28.0-33.3); Mean Corpuscular Volume 93.4 fL (83.0-100.0); Mean Platelet Volume 11.1 fL (9.4-12.4); Platelet Count 134 K/mcL (140-400); Red Blood Count 4.26 M/mcL (4.19-5.50); Red Cell Distribution Width 12.4 % (11.5-14.5); White Blood Count 10.6 K/mcL (4.3-11.1)
[2019-09-17 02:38] LABS: INR 1.1; Prothrombin Time 12.6 Seconds (9.4-12.1)
[2019-09-17] MEDS: *HR* Heparin 5,000 UNIT/ML VIAL SQ SCH (04:06)
[2019-09-17] MEDS: niCARdipine 20 MG/200 ML MLS IVC SCH ×2 (07:30→07:31)
[2019-09-17] MEDS: amLODIPine 5 MG TABLET PO SCH (07:49)
[2019-09-17] MEDS: Finasteride 5 MG TABLET PO SCH (07:49)
[2019-09-17] MEDS: levETIRAcetam 250 MG TABLET PO SCH (07:49)
[2019-09-17] MEDS ORDERED: Aspirin 81 MG TAB.CHEW PO SCH (09:00)
[2019-09-17] MEDS ORDERED: Spironolactone 25 MG TABLET PO SCH (09:45)
[2019-09-17 09:52] VITALS: BP 162/71
[2019-09-18] MEDS ORDERED: amLODIPine 5 MG TABLET PO SCH (09:00)
== END 2019-09-17 11:27 | disposition home or self-care (01) ==
LOC: 2NNU 16:18 → EMEROOARM 16:18 → SUATTDRO 19:22 → 2NNU 19:50
PROVIDERS: ADMIT Internal Medicine; ATTEND Internal Medicine